=== PATIENT | male | born 1935 | race African-American/Black ===

== ENCOUNTER 2016-07-29 23:41 | Emergency (ER) | payer MEDICARE, OTHER ==
[2016-07-29 23:46] VITALS: TEMP 98.3
[2016-07-30] MEDS ORDERED: SODIUM CHLORIDE 0.9% 500 ML IV STA (00:01)
[2016-07-30] MEDS ORDERED: SODIUM CHLORIDE 0.9% 1,000 ML IV STA (00:01)
--- NOTE | 2016-07-30 00:04 | ED ---
Chest Pain HPI - General Chief Complaint: Chest Pain Stated Complaint: HTN/CHEST PAIN Time Seen by Provider: 07/29/16 23:55 Source: patient, family, RN notes reviewed Mode of arrival: ambulatory Limitations: no limitations - History of Present Illness Initial Comments: This is a 80-year-old male with a history of hypertension who came in today for evaluation of irregular blood pressure also some left-sided chest pain he states he noted his blood pressure was low yesterday he developed take his morning medications he did take his p.m. medications blood pressure was 104 systolic he states it was in the high 90s later on. He states he did take it prior to coming in tonight he also complains some left-sided chest pain and a slight headache he currently has no headache he states chest pain sometimes radiates to his arm is working out lately and it does increase with movements. He has no cough fevers chills sweats or other symptoms at this time. He also states he was not feeling quite like normal. MD Complaint: chest pain, other - Related Data Home Medications Medication Instructions Recorded Confirmed Aspirin 81 mg PO DAILY 12/12/14 07/29/16 Atenolol 25 mg PO BID 12/12/14 07/29/16 Finasteride [Proscar] 5 mg PO DAILY 12/12/14 07/29/16 Losartan Potassium [Cozaar] 100 mg PO DAILY 12/12/14 07/29/16 Omeprazole [PriLOSEC] 20 mg PO AC-BID 12/12/14 07/29/16 Tamsulosin HCl [Flomax] 0.4 mg PO BID 12/12/14 07/29/16 Travoprost [Travatan Z 0.004%] 1 drop LEFT EYE HS 12/12/14 07/29/16 amLODIPine [Norvasc] 5 mg PO DAILY 12/12/14 07/29/16 hydrALAZINE HCL [Apresoline] 25 mg PO BID 12/12/14 07/29/16 Previous Rx's Medication Instructions Recorded Albuterol Inhaler [Ventolin Hfa 2 puff INHALATION Q4HR PRN #1 12/12/14 Inhaler] inhaler Benzonatate [Tessalon Perles] 200 mg PO TID PRN #30 capsule 12/12/14 Docusate [Colace] 100 mg PO BID 30 Days 04/24/15 predniSONE 20 mg PO BID #14 tab 10/21/15 Allergies Allergy/AdvReac Type Severity Reaction Status Date / Time doxycycline Allergy Unknown Verified 07/29/16 23:46 levofloxacin [From Levaquin] Allergy Unknown Verified 07/29/16 23:46 ibuprofen [From Motrin] AdvReac Nausea Verified 07/29/16 23:46 Review of Systems ROS Statement: Those systems with pertinent positive or pertinent negative responses have been documented in the HPI. ROS Other: All systems not noted in ROS Statement are negative. EKG Findings - EKG Results: EKG: interpreted by JOS, sinus rhythm (Sinus rhythm with a rate of 71. Interval 160 QRS duration 96 QT/QTC of 392/425. Criteria for LVH no acute ST-T wave changes.) Past Medical History Past Medical History: GERD/Reflux, Hypertension Additional Past Medical History / Comment(s): BPH History of Any Multi-Drug Resistant Organisms: None Reported Past Surgical History: Cholecystectomy Past Psychological History: No Psychological Hx Reported Smoking Status: Former smoker Past Alcohol Use History: None Reported Past Drug Use History: None Reported General Exam - General Exam Comments Initial Comments: This is a well-developed well-nourished alert oriented x3 male Limitations: no limitations General appearance: alert, in no apparent distress Head exam: Present: atraumatic, normocephalic, normal inspection Eye exam: Present: normal appearance, PERRL, EOMI. Absent: scleral icterus, conjunctival injection, periorbital swelling ENT exam: Present: normal exam, mucous membranes moist Neck exam: Present: normal inspection. Absent: tenderness, meningismus, lymphadenopathy Respiratory exam: Present: normal lung sounds bilaterally, chest wall tenderness (Producible tenderness palpation along the left costal chondral margin and left pectoralis muscles). Absent: respiratory distress, wheezes, rales, rhonchi, stridor Cardiovascular Exam: Present: regular rate, normal rhythm, normal heart sounds. Absent: systolic murmur, diastolic murmur, rubs, gallop, clicks GI/Abdominal exam: Present: soft, normal bowel sounds. Absent: distended, tenderness, guarding, rebound, rigid Extremities exam: Present: normal inspection, full ROM, normal capillary refill. Absent: tenderness, pedal edema, joint swelling, calf tenderness Back exam: Present: normal inspection Neurological exam: Present: alert, oriented X3, CN II-XII intact Psychiatric exam: Present: normal affect, normal mood Skin exam: Present: warm, dry, intact, normal color. Absent: rash Course Vital Signs 07/29/16 07/30/16 23:42 00:59 Temperature 98.3 F Pulse Rate 77 67 Respiratory 18 14 Rate Blood Pressure 211/95 180/89 O2 Sat by Pulse 98 98 Oximetry Chest Pain MDM - MDM I did reevaluate the patient initially much improved blood pressure is improved after IV hydration x-rays are negative he will be discharged home is a follow- up with his doctor in 2 days return when necessary Disposition Clinical Impression: Hypertension, Dehydration Disposition: HOME SELF-CARE Condition: Good Instructions: Hypertension (ED), Dehydration (ED)
[2016-07-30 00:30] LABS: Basophils % (A) 1 %; Eosinophils # (A) 0.2 k/uL (0-0.7); Eosinophils % (A) 3 %; HCT 41.6 % (39.0-53.0); HDW 2.27; HGB 13.5 gm/dL (13.0-17.5); Luc # (Auto) 0.14; Luc % (Auto) 2; Lymphocytes # (A) 1.5 k/uL (1.0-4.8); Lymphocytes % (A) 25 %; MCH 30.6 pg (25.0-35.0); MCHC 32.4 g/dL (31.0-37.0); MCV 94.2 fL (80.0-100.0); Mean Platelet Volume 7.5; Monocytes # (A) 0.6 k/uL (0-1.0); Monocytes % (A) 9 %; Neutrophils # (A) 3.6 k/uL (1.3-7.7); Neutrophils % (A) 61 %; RBC 4.41 m/uL (4.30-5.90); RDW 13.4 % (11.5-15.5); WBC (Perox) 5.89
[2016-07-30 00:40] LABS: Partial Thromboplastin Time 23.4 sec (22.0-30.0); Prothrombin Time 10.5 sec (9.0-12.0)
[2016-07-30 00:41] LABS: ALT 42 U/L (21-72); AST 29 U/L (17-59); Alkaline Phosphatase 60 U/L (38-126); Anion Gap 10 mmol/L; Blood Urea Nitrogen 18 mg/dL (9-20); Calcium 9.5 mg/dL (8.4-10.2); Carbon Dioxide 24 mmol/L (22-30); Chloride 107 mmol/L (98-107); Glucose 101 mg/dL (74-99); Non-African American GFR(MDRD) >60 (>60 ml/min/1.73 sqM); Sodium 141 mmol/L (137-145); Total Bilirubin 0.4 mg/dL (0.2-1.3); Total Protein 7.4 g/dL (6.3-8.2)
[2016-07-30 00:42] LABS: Potassium 4.4 mmol/L (3.5-5.1)
[2016-07-30 00:52] LABS: Creatine Kinase 110 U/L (55-170)
[2016-07-30 01:00] VITALS: BP 180/89; PULSE 67; RESP 14
[2016-07-30 01:05] LABS: Creatine Kinase MB 1.7 ng/mL (0.0-2.4); Troponin I <0.012 ng/mL (0.000-0.034)
--- NOTE | 2016-07-30 03:29 | XR ---
EXAMINATION TYPE: XR chest 2V DATE OF EXAM: 07/30/2016 12:50 AM COMPARISON: 12/28/2014 HISTORY: Chest pain TECHNIQUE: Frontal and lateral views of the chest are obtained. FINDINGS: Mild atelectasis is suggested in both lung bases. COPD changes are noted. There is no focal air space opacity, pleural effusion, or pneumothorax seen. The cardiac silhouette size is within normal limits. Mild degenerative changes in the thoracic spine with mild old compress ion deformities. IMPRESSION: 1. Mild atelectasis in both lung bases. 2. No focal pneumonia. 3. COPD changes.
== END 2016-07-30 01:46 | disposition home or self-care (01) ==
LOC: EC 23:41
DX: I10 Essential (primary) hypertension (principal); E86.0 Dehydration; K21.9 Gastro-esophageal reflux disease without esophagitis; N40.0 Benign prostatic hyperplasia without lower urinary tract symptoms; Z79.82 Long term (current) use of aspirin; Z79.899 Other long term (current) drug therapy; Z88.1 Allergy status to other antibiotic agents; Z88.8 Allergy status to other drugs, medicaments and biological substances; Z87.891 Personal history of nicotine dependence
CPT/HCPCS: 36415; 71020; 80053; 82550; 82553; 83735; 84484; 85025; 85610; 85730; 93005; 96360; 99285

== ENCOUNTER 2017-05-15 23:17 | Emergency (ER) | payer MEDICARE, OTHER ==
[2017-05-15 23:26] VITALS: TEMP 97.9
[2017-05-16] MEDS ORDERED: cloNIDine HCL 0.2 MG TAB PO STA (00:10)
--- NOTE | 2017-05-16 00:10 | ED ---
Extremity Problem HPI - General Chief complaint: Extremity Problem,Nontraumatic Stated complaint: leg swelling, hypertenstion Time Seen by Provider: 05/15/17 23:36 Source: patient Mode of arrival: ambulatory Limitations: no limitations - History of Present Illness Initial comments: This patient is a 81-year-old man who presents to be evaluated for bilateral ankle swelling. The patient states this been going on for number of months. 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 Patient does bring a piece paper that has some elevated liver pressure readings going back about a week, and ranging from the 160s to 200s. The patient is denying chest pain, dyspnea, cough. He is not having abdominal pain. He has not noted a change in urination or bowel movements. Patient states that he was told that he may need a prostate surgery, but states that he still is able to urinate. MD Complaint: extremity swelling -: week(s) Location: bilateral lower extremity Consistency: constant Improves with: nothing Worsens with: nothing Associated Symptoms: denies other symptoms - Related Data Home Medications Medication Instructions Recorded Confirmed Aspirin 81 mg PO DAILY 12/12/14 05/16/17 Atenolol 25 mg PO BID 12/12/14 05/16/17 Finasteride [Proscar] 5 mg PO DAILY 12/12/14 05/16/17 Losartan Potassium [Cozaar] 100 mg PO DAILY 12/12/14 05/16/17 Omeprazole [PriLOSEC] 40 mg PO DAILY 12/12/14 05/16/17 Tamsulosin HCl [Flomax] 0.4 mg PO BID 12/12/14 05/16/17 hydrALAZINE HCL [Apresoline] 50 mg PO TID 12/12/14 05/16/17 Latanoprost Ophth [Xalatan 0.005%] 1 drop LEFT EYE DAILY 05/16/17 05/16/17 Terbinafine [LamISIL] 250 mg PO DAILY 05/16/17 05/16/17 cloNIDine HCL [Catapres] 0.1 mg PO TID 05/16/17 05/16/17 Allergies Allergy/AdvReac Type Severity Reaction Status Date / Time doxycycline Allergy Unknown Verified 05/15/17 23:26 levofloxacin [From Levaquin] Allergy Unknown Verified 05/15/17 23:26 ibuprofen [From Motrin] AdvReac Nausea Verified 05/15/17 23:26 Review of Systems ROS Statement: Those systems with pertinent positive or pertinent negative responses have been documented in the HPI. ROS Other: All systems not noted in ROS Statement are negative. Constitutional: Denies: fever, chills Respiratory: Denies: cough, dyspnea Cardiovascular: Reports: edema. Denies: chest pain, palpitations, orthopnea, syncope Gastrointestinal: Denies: abdominal pain, nausea, vomiting Genitourinary: Reports: as per HPI. Denies: dysuria, hematuria Musculoskeletal: Denies: back pain Skin: Denies: rash Neurological: Denies: headache, weakness, numbness Past Medical History Past Medical History: GERD/Reflux, Hearing Disorder / Deafness, Hypertension Additional Past Medical History / Comment(s): BPH, bulged disk in neck. History of Any Multi-Drug Resistant Organisms: None Reported Past Surgical History: Cholecystectomy, Hernia Repair, Tonsillectomy Additional Past Surgical History / Comment(s): cyst from spine removed. Past Psychological History: No Psychological Hx Reported Smoking Status: Former smoker Past Alcohol Use History: None Reported Past Drug Use History: None Reported General Exam Limitations: no limitations General appearance: alert, in no apparent distress Head exam: Present: atraumatic, normocephalic Eye exam: Present: normal appearance. Absent: scleral icterus, conjunctival injection Respiratory exam: Present: normal lung sounds bilaterally. Absent: respiratory distress, wheezes, rales, rhonchi, stridor Cardiovascular Exam: Present: regular rate, normal rhythm, normal heart sounds. Absent: systolic murmur, diastolic murmur, rubs, gallop GI/Abdominal exam: Present: soft. Absent: distended, tenderness, guarding, rebound Extremities exam: Present: normal inspection, normal capillary refill, pedal edema (Patient has bilateral pitting edema to the mid tibia). Absent: calf tenderness Back exam: Present: normal inspection. Absent: CVA tenderness (R), CVA tenderness (L) Neurological exam: Present: alert Skin exam: Present: warm, dry, intact, normal color Course Vital Signs 05/15/17 05/16/17 23:20 02:06 Temperature 97.9 F Pulse Rate 84 62 Respiratory 18 16 Rate Blood Pressure 237/107 168/88 O2 Sat by Pulse 99 100 Oximetry Medical Decision Making - Medical Decision Making This patient is 81-year-old man presenting with bilateral leg edema. He is found to have 950 mL on the bladder scan after voiding. For this reason the patient will have catheter placed and follow-up with both nephrology and urology. He has previously been told that he should have a prostate procedure for what sounds like a previous history of retention. The patient is offered admission but states that he has family coming into town from [place] for the holiday tomorrow and that he will follow-up in status this is possible. I did stress the importance of following up, and the patient understands, given that his had kidney failure. - Lab Data Result diagrams: 05/15/17 23:50 05/15/17 23:50 Lab Results 05/15/17 05/15/17 05/15/17 Range/Units 23:50 23:50 23:50 WBC 6.5 (3.8-10.6) k/uL RBC 4.03 L (4.30-5.90) m/uL Hgb 12.3 L (13.0-17.5) gm/dL Hct 38.1 L (39.0-53.0) % MCV 94.7 (80.0-100.0) fL MCH 30.5 (25.0-35.0) pg MCHC 32.2 (31.0-37.0) g/dL RDW 14.3 (11.5-15.5) % Plt Count 228 (150-450) k/uL Neutrophils % 62 % Lymphocytes % 22 % Monocytes % 10 % Eosinophils % 3 % Basophils % 0 % Neutrophils # 4.0 (1.3-7.7) k/uL Lymphocytes # 1.4 (1.0-4.8) k/uL Monocytes # 0.7 (0-1.0) k/uL Eosinophils # 0.2 (0-0.7) k/uL Basophils # 0.0 (0-0.2) k/uL Sodium 141 (137-145) mmol/L Potassium 4.1 (3.5-5.1) mmol/L Chloride 107 (98-107) mmol/L Carbon Dioxide 24 (22-30) mmol/L Anion Gap 10 mmol/L BUN 25 H (9-20) mg/dL Creatinine 1.70 H (0.66-1.25) mg/dL Est GFR (MDRD) Af Amer 47 (>60 ml/min/1.73 sqM) Est GFR (MDRD) Non-Af 39 (>60 ml/min/1.73 sqM) Glucose 119 H (74-99) mg/dL Calcium 9.3 (8.4-10.2) mg/dL Magnesium 1.9 (1.6-2.3) mg/dL Total Bilirubin 0.4 (0.2-1.3) mg/dL AST 32 (17-59) U/L ALT 39 (21-72) U/L Alkaline Phosphatase 67 (38-126) U/L Troponin I (0.000-0.034) ng/mL NT-Pro-B Natriuret Pep 1140 pg/mL Total Protein 7.0 (6.3-8.2) g/dL Albumin 4.0 (3.5-5.0) g/dL 05/15/17 Range/Units 23:50 WBC (3.8-10.6) k/uL RBC (4.30-5.90) m/uL Hgb (13.0-17.5) gm/dL Hct (39.0-53.0) % MCV (80.0-100.0) fL MCH (25.0-35.0) pg MCHC (31.0-37.0) g/dL RDW (11.5-15.5) % Plt Count (150-450) k/uL Neutrophils % % Lymphocytes % % Monocytes % % Eosinophils % % Basophils % % Neutrophils # (1.3-7.7) k/uL Lymphocytes # (1.0-4.8) k/uL Monocytes # (0-1.0) k/uL Eosinophils # (0-0.7) k/uL Basophils # (0-0.2) k/uL Sodium (137-145) mmol/L Potassium (3.5-5.1) mmol/L Chloride (98-107) mmol/L Carbon Dioxide (22-30) mmol/L Anion Gap mmol/L BUN (9-20) mg/dL Creatinine (0.66-1.25) mg/dL Est GFR (MDRD) Af Amer (>60 ml/min/1.73 sqM) Est GFR (MDRD) Non-Af (>60 ml/min/1.73 sqM) Glucose (74-99) mg/dL Calcium (8.4-10.2) mg/dL Magnesium (1.6-2.3) mg/dL Total Bilirubin (0.2-1.3) mg/dL AST (17-59) U/L ALT (21-72) U/L Alkaline Phosphatase (38-126) U/L Troponin I <0.012 (0.000-0.034) ng/mL NT-Pro-B Natriuret Pep pg/mL Total Protein (6.3-8.2) g/dL Albumin (3.5-5.0) g/dL - EKG Data -: EKG Interpreted by Nh EKG shows normal: sinus rhythm (Rate approximately 82 bpm), axis (Normal), intervals (Normal), ST-T waves (Normal) Interpretation: LVH, other (Possible left atrial enlargement) Disposition Clinical Impression: Edema, Acute renal failure, Urinary retention Disposition: HOME SELF-CARE Condition: Fair Instructions: Urinary Retention in Men (ED), Leg Edema (ED) Referrals: Antonieta Rey MD [Primary Care Provider] - 1-2 days Racheal Caballero MD [STAFF PHYSICIAN] - 1-2 days Deepak Diaz MD [STAFF PHYSICIAN] - 1-2 days
[2017-05-16 00:40] LABS: Basophils % (A) 0 %; Eosinophils # (A) 0.2 k/uL (0-0.7); Eosinophils % (A) 3 %; HCT 38.1 % (39.0-53.0); HGB 12.3 gm/dL (13.0-17.5); Lymphocytes # (A) 1.4 k/uL (1.0-4.8); Lymphocytes % (A) 22 %; MCH 30.5 pg (25.0-35.0); MCHC 32.2 g/dL (31.0-37.0); MCV 94.7 fL (80.0-100.0); Mean Platelet Volume 7.6; Monocytes # (A) 0.7 k/uL (0-1.0); Monocytes % (A) 10 %; Neutrophils % (A) 62 %; Platelet Count 228 k/uL (150-450); RBC 4.03 m/uL (4.30-5.90); RDW 14.3 % (11.5-15.5); WBC 6.5 k/uL (3.8-10.6)
[2017-05-16 00:46] LABS: Calcium 9.3 mg/dL (8.4-10.2); Magnesium 1.9 mg/dL (1.6-2.3); Potassium 4.1 mmol/L (3.5-5.1); Total Bilirubin 0.4 mg/dL (0.2-1.3)
--- NOTE | 2017-05-16 01:44 | XR ---
EXAMINATION TYPE: XR chest 2V DATE OF EXAM: 05/16/2017 COMPARISON: NONE HISTORY: Chest pain TECHNIQUE: Frontal and lateral views of the chest are obtained. FINDINGS: Heart and mediastinum are normal. Lungs are clear. Diaphragm is normal. There are chest le ads. Bony thorax is intact. IMPRESSION: No active cardiopulmonary disease. No change.
[2017-05-16 02:07] VITALS: RESP 16
[2017-05-16 03:17] VITALS: BP 206/95; PULSE 84
== END 2017-05-16 03:17 | disposition home or self-care (01) ==
LOC: EC 23:17
DX: R60.0 Localized edema (principal); N17.9 Acute kidney failure, unspecified; R33.9 Retention of urine, unspecified; K21.9 Gastro-esophageal reflux disease without esophagitis; I10 Essential (primary) hypertension; N40.0 Benign prostatic hyperplasia without lower urinary tract symptoms; H91.90 Unspecified hearing loss, unspecified ear; Z87.891 Personal history of nicotine dependence; Z79.82 Long term (current) use of aspirin; Z79.899 Other long term (current) drug therapy; Z88.1 Allergy status to other antibiotic agents; Z88.6 Allergy status to analgesic agent
CPT/HCPCS: 36415; 51702; 51798; 71020; 80053; 83735; 83880; 84484; 85025; 93005; 99284

== ENCOUNTER 2017-05-16 08:15 | Emergency (ER) | payer MEDICARE, OTHER ==
--- NOTE | 2017-05-16 08:48 | ED ---
Male Urogenital HPI - General Chief complaint: Urogenital Stated complaint: R leg bleed Time Seen by Provider: 05/16/17 08:35 Source: patient, family, RN notes reviewed Mode of arrival: wheelchair Limitations: no limitations - History of Present Illness Initial comments: This is a 81-year-old male who was seen in this emergency department and discharge earlier this morning who initially came in because of urinary OBSTRUCTION WHO DID ONLY GET A CATHETER WHO IS HAD A LOT OF BLOOD IN HIS CATHETER THE PAST SEVERAL TIMES IT WAS EMPTIED. HE ORIGINALLY HAD A LOT OF URINE BEFORE THE OLD CATHETER WAS PLACED. Patient denies any fevers chills abdominal pain. He does have a Lee with a leg bag on at this time. - Related Data Home Medications Medication Instructions Recorded Confirmed Aspirin 81 mg PO DAILY 12/12/14 05/16/17 Atenolol 25 mg PO BID 12/12/14 05/16/17 Finasteride [Proscar] 5 mg PO DAILY 12/12/14 05/16/17 Losartan Potassium [Cozaar] 100 mg PO DAILY 12/12/14 05/16/17 Omeprazole [PriLOSEC] 40 mg PO DAILY 12/12/14 05/16/17 Tamsulosin HCl [Flomax] 0.4 mg PO BID 12/12/14 05/16/17 hydrALAZINE HCL [Apresoline] 50 mg PO TID 12/12/14 05/16/17 HYDROcodone/APAP 7.5-325MG [[place] 1 tab PO BID PRN 05/16/17 05/16/17 7.5-325] Latanoprost Ophth [Xalatan 0.005%] 1 drop LEFT EYE HS 05/16/17 05/16/17 Terbinafine [LamISIL] 250 mg PO DAILY 05/16/17 05/16/17 cloNIDine HCL [Catapres] 0.1 mg PO TID 05/16/17 05/16/17 Allergies Allergy/AdvReac Type Severity Reaction Status Date / Time doxycycline Allergy Unknown Verified 05/16/17 08:40 levofloxacin [From Levaquin] Allergy Unknown Verified 05/16/17 08:40 ibuprofen [From Motrin] AdvReac Nausea Verified 05/16/17 08:40 Review of Systems ROS Statement: Those systems with pertinent positive or pertinent negative responses have been documented in the HPI. ROS Other: All systems not noted in ROS Statement are negative. Past Medical History Past Medical History: GERD/Reflux, Hearing Disorder / Deafness, Hypertension Additional Past Medical History / Comment(s): BPH, bulged disk in neck. History of Any Multi-Drug Resistant Organisms: None Reported Past Surgical History: Cholecystectomy, Hernia Repair, Tonsillectomy Additional Past Surgical History / Comment(s): cyst from spine removed. Past Psychological History: No Psychological Hx Reported Smoking Status: Former smoker Past Alcohol Use History: None Reported Past Drug Use History: None Reported General Exam - General Exam Comments Initial Comments: This is a well-developed well-nourished awake alert oriented 3 male Limitations: no limitations General appearance: alert, in no apparent distress Head exam: Present: atraumatic, normocephalic, normal inspection Eye exam: Present: normal appearance, PERRL, EOMI. Absent: scleral icterus, conjunctival injection, periorbital swelling ENT exam: Present: normal exam, mucous membranes moist Neck exam: Present: normal inspection. Absent: tenderness, meningismus, lymphadenopathy Respiratory exam: Present: normal lung sounds bilaterally. Absent: respiratory distress, wheezes, rales, rhonchi, stridor Cardiovascular Exam: Present: regular rate, normal rhythm, normal heart sounds. Absent: systolic murmur, diastolic murmur, rubs, gallop, clicks GI/Abdominal exam: Present: soft, normal bowel sounds. Absent: distended, tenderness, guarding, rebound, rigid Rectal exam: Present: deferred exam: Present: other (Fully catheter is in place there is evidence of hematuria with small clots noted. No leak is seen). Absent: testicular tenderness, scrotal swelling Extremities exam: Present: normal inspection, full ROM, normal capillary refill. Absent: tenderness, pedal edema, joint swelling, calf tenderness Back exam: Absent: tenderness Neurological exam: Present: alert, oriented X3, CN II-XII intact Psychiatric exam: Present: normal affect, normal mood Skin exam: Present: warm, dry, intact, normal color. Absent: rash Course Vital Signs 05/16/17 05/16/17 05/16/17 08:23 10:00 10:40 Temperature 98.0 F Pulse Rate 73 71 70 Respiratory 16 18 18 Rate Blood Pressure 227/100 225/105 231/107 O2 Sat by Pulse 95 98 98 Oximetry Medical Decision Making - Medical Decision Making Reevaluation patient reveals his blood pressure is trending down he did not take his medications this morning he was given them in the emergency department. He is asymptomatic at this time we had a long discussion regarding the hematuria that should clear up over time over the next one or 2 days. He is encouraged to continue to take fluids. He was warned that if clots forming could plug up the catheter again. He is aware this. He will follow-up with his doctor. - Lab Data Lab Results 05/16/17 Range/Units 09:52 Urine Color Red Urine Appearance Bloody (Clear) Urine RBC >182 H (0-5) /hpf Urine WBC 7 H (0-5) /hpf Disposition Clinical Impression: Lee catheter problem, Hematuria, Hypertension Disposition: HOME SELF-CARE Condition: Good Instructions: Lee Catheter Placement and Care (ED), Hematuria (ED), Hypertension (ED) Additional Instructions: Increase oral fluid consumption Referrals: Antonieta Rey MD [Primary Care Provider] - 1-2 days
[2017-05-16 10:00] VITALS: RESP 18
[2017-05-16 10:15] LABS: Particle Count 5100; RBC,Urine >182 /hpf (0-5); WBC,Urine 7 /hpf (0-5)
[2017-05-16 10:17] LABS: Appearance,Urine Bloody (Clear)
[2017-05-16 10:18] LABS: UA Billing (MACRO vs. MICRO) MICRO
[2017-05-16] MEDS ORDERED: hydrALAZINE HCL 50 MG TAB PO STA (10:19)
[2017-05-16] MEDS ORDERED: cloNIDine HCL 0.1 MG TAB PO STA (10:20)
[2017-05-16] MEDS ORDERED: LOSARTAN 50 MG TAB PO STA (10:20)
[2017-05-16] MEDS ORDERED: ATENOLOL 25 MG TAB PO STA (10:20)
[2017-05-16 12:09] VITALS: BP 164/92; PULSE 78; TEMP 98.4
== END 2017-05-16 12:06 | disposition home or self-care (01) ==
LOC: EC 08:15
DX: T83.098A Other mechanical complication of other urinary catheter, initial encounter (principal); R31.9 Hematuria, unspecified; I10 Essential (primary) hypertension; K21.9 Gastro-esophageal reflux disease without esophagitis; H91.90 Unspecified hearing loss, unspecified ear; N40.0 Benign prostatic hyperplasia without lower urinary tract symptoms; Z87.891 Personal history of nicotine dependence; Z79.82 Long term (current) use of aspirin; Z79.899 Other long term (current) drug therapy; Z88.1 Allergy status to other antibiotic agents; Z88.6 Allergy status to analgesic agent; Z90.49 Acquired absence of other specified parts of digestive tract
CPT/HCPCS: 51798; 81001; 99284

== ENCOUNTER 2017-05-25 22:00 | Emergency (ER) | payer MEDICARE, OTHER ==
[2017-05-25] MEDS ORDERED: RX INFO: IV CONTRAST WAS GIVEN 1 EACH MISC MISCELLANE PRN (22:58)
--- NOTE | 2017-05-25 23:01 | ED ---
General Adult HPI - General Chief complaint: Urogenital Stated complaint: groin pain Time Seen by Provider: 05/25/17 22:11 Source: patient, family, RN notes reviewed Mode of arrival: ambulatory Limitations: no limitations - History of Present Illness Initial comments: Patient is a pleasant 81-year-old male presenting to the emergency department with groin pain. Patient was in the hospital a week or so ago and had catheter placed. Patient has had significant urinary output and decrease in leg swelling since that time. Patient has had some clots out from the catheter. Patient does have discomfort in the groin/inguinal region. No testicle pain. No testicle swelling. Patient did have some swelling of the penis however this has resolved with care by the son. - Related Data Home Medications Medication Instructions Recorded Confirmed Aspirin 81 mg PO DAILY 12/12/14 05/25/17 Atenolol 25 mg PO BID 12/12/14 05/25/17 Finasteride [Proscar] 5 mg PO DAILY 12/12/14 05/25/17 Losartan Potassium [Cozaar] 100 mg PO DAILY 12/12/14 05/25/17 Omeprazole [PriLOSEC] 40 mg PO DAILY 12/12/14 05/25/17 Tamsulosin HCl [Flomax] 0.4 mg PO BID 12/12/14 05/25/17 hydrALAZINE HCL [Apresoline] 50 mg PO BID 12/12/14 05/25/17 HYDROcodone/APAP 7.5-325MG [[place] 1 tab PO BID PRN 05/16/17 05/25/17 7.5-325] Latanoprost Ophth [Xalatan 0.005%] 1 drop LEFT EYE HS 05/16/17 05/25/17 Terbinafine [LamISIL] 250 mg PO DAILY 05/16/17 05/25/17 cloNIDine HCL [Catapres] 0.1 mg PO BID 05/16/17 05/25/17 Allergies Allergy/AdvReac Type Severity Reaction Status Date / Time doxycycline Allergy Unknown Verified 05/25/17 22:35 levofloxacin [From Levaquin] Allergy Unknown Verified 05/25/17 22:35 ibuprofen [From Motrin] AdvReac Nausea Verified 05/25/17 22:35 Review of Systems ROS Statement: Those systems with pertinent positive or pertinent negative responses have been documented in the HPI. ROS Other: All systems not noted in ROS Statement are negative. Constitutional: Denies: fever Eyes: Denies: eye pain ENT: Denies: ear pain Respiratory: Denies: cough Cardiovascular: Denies: chest pain Endocrine: Denies: fatigue Gastrointestinal: Denies: abdominal pain Genitourinary: Reports: hematuria Musculoskeletal: Denies: back pain Skin: Denies: rash Neurological: Denies: weakness Past Medical History Past Medical History: GERD/Reflux, Hearing Disorder / Deafness, Hypertension Additional Past Medical History / Comment(s): BPH, bulged disk in neck. History of Any Multi-Drug Resistant Organisms: None Reported Past Surgical History: Cholecystectomy, Hernia Repair, Tonsillectomy Additional Past Surgical History / Comment(s): cyst from spine removed. Past Psychological History: No Psychological Hx Reported Smoking Status: Former smoker Past Alcohol Use History: None Reported Past Drug Use History: None Reported General Exam Limitations: no limitations General appearance: alert, in no apparent distress Head exam: Present: atraumatic Eye exam: Present: normal appearance, PERRL ENT exam: Present: normal oropharynx Neck exam: Present: normal inspection Respiratory exam: Present: normal lung sounds bilaterally Cardiovascular Exam: Present: regular rate, normal rhythm GI/Abdominal exam: Present: soft. Absent: distended, tenderness, guarding, rebound, rigid exam: Present: other (No erythema or swelling. Minimal tenderness bilateral inguinal region). Absent: testicular tenderness, urethral discharge, scrotal swelling Extremities exam: Present: normal inspection Neurological exam: Present: alert Psychiatric exam: Present: normal affect, normal mood Skin exam: Present: normal color Course Vital Signs 05/25/17 05/25/17 05/26/17 22:04 23:54 00:46 Temperature 97.9 F 98.7 F Pulse Rate 70 65 71 Respiratory 20 16 16 Rate Blood Pressure 201/96 213/109 176/84 O2 Sat by Pulse 99 99 98 Oximetry Medical Decision Making - Medical Decision Making Patient reevaluated and resting comfortably in bed. Patient and family are updated on results and need for follow-up. Specifically updated on concerning regions in the bladder and kidney and that the kidney doctor will need to follow -up with this. Patient has seen Dr. Diaz the past and does have an appointment. - Lab Data Result diagrams: 05/25/17 23:27 12/01/17 23:27 Lab Results 05/25/17 05/25/17 05/25/17 Range/Units 23:27 23:27 23:27 WBC 7.0 (3.8-10.6) k/uL RBC 4.15 L (4.30-5.90) m/uL Hgb 12.5 L (13.0-17.5) gm/dL Hct 38.3 L (39.0-53.0) % MCV 92.2 (80.0-100.0) fL MCH 30.1 (25.0-35.0) pg MCHC 32.7 (31.0-37.0) g/dL RDW 13.1 (11.5-15.5) % Plt Count 256 (150-450) k/uL Neutrophils % 62 % Lymphocytes % 22 % Monocytes % 9 % Eosinophils % 2 % Basophils % 0 % Neutrophils # 4.4 (1.3-7.7) k/uL Lymphocytes # 1.6 (1.0-4.8) k/uL Monocytes # 0.6 (0-1.0) k/uL Eosinophils # 0.2 (0-0.7) k/uL Basophils # 0.0 (0-0.2) k/uL PT 10.4 (9.0-12.0) sec INR 1.0 (<1.2) APTT 24.0 (22.0-30.0) sec Sodium 136 L (137-145) mmol/L Potassium 4.1 (3.5-5.1) mmol/L Chloride 101 (98-107) mmol/L Carbon Dioxide 25 (22-30) mmol/L Anion Gap 10 mmol/L BUN 17 (9-20) mg/dL Creatinine 1.20 (0.66-1.25) mg/dL Est GFR (MDRD) Af Amer >60 (>60 ml/min/1.73 sqM) Est GFR (MDRD) Non-Af 58 (>60 ml/min/1.73 sqM) Glucose 96 (74-99) mg/dL Calcium 9.4 (8.4-10.2) mg/dL Total Bilirubin 0.3 (0.2-1.3) mg/dL AST 30 (17-59) U/L ALT 36 (21-72) U/L Alkaline Phosphatase 70 (38-126) U/L Total Protein 7.0 (6.3-8.2) g/dL Albumin 3.9 (3.5-5.0) g/dL Amylase 92 (30-110) U/L Lipase 129 (23-300) U/L Urine Color Urine Appearance (Clear) Urine pH (5.0-8.0) Ur Specific [place] (1.001-1.035) Urine Protein (Negative) Urine Glucose (UA) (Negative) Urine Ketones (Negative) Urine Blood (Negative) Urine Nitrite (Negative) Urine Bilirubin (Negative) Urine Urobilinogen (<2.0) mg/dL Ur Leukocyte Esterase (Negative) Urine RBC (0-5) /hpf Urine WBC (0-5) /hpf Urine Bacteria (None) /hpf Urine Mucus (None) /hpf 05/25/17 Range/Units 23:27 WBC (3.8-10.6) k/uL RBC (4.30-5.90) m/uL Hgb (13.0-17.5) gm/dL Hct (39.0-53.0) % MCV (80.0-100.0) fL MCH (25.0-35.0) pg MCHC (31.0-37.0) g/dL RDW (11.5-15.5) % Plt Count (150-450) k/uL Neutrophils % % Lymphocytes % % Monocytes % % Eosinophils % % Basophils % % Neutrophils # (1.3-7.7) k/uL Lymphocytes # (1.0-4.8) k/uL Monocytes # (0-1.0) k/uL Eosinophils # (0-0.7) k/uL Basophils # (0-0.2) k/uL PT (9.0-12.0) sec INR (<1.2) APTT (22.0-30.0) sec Sodium (137-145) mmol/L Potassium (3.5-5.1) mmol/L Chloride (98-107) mmol/L Carbon Dioxide (22-30) mmol/L Anion Gap mmol/L BUN (9-20) mg/dL Creatinine (0.66-1.25) mg/dL Est GFR (MDRD) Af Amer (>60 ml/min/1.73 sqM) Est GFR (MDRD) Non-Af (>60 ml/min/1.73 sqM) Glucose (74-99) mg/dL Calcium (8.4-10.2) mg/dL Total Bilirubin (0.2-1.3) mg/dL AST (17-59) U/L ALT (21-72) U/L Alkaline Phosphatase (38-126) U/L Total Protein (6.3-8.2) g/dL Albumin (3.5-5.0) g/dL Amylase (30-110) U/L Lipase (23-300) U/L Urine Color Light Yellow Urine Appearance Clear (Clear) Urine pH 5.0 (5.0-8.0) Ur Specific [place] 1.002 (1.001-1.035) Urine Protein Negative (Negative) Urine Glucose (UA) Negative (Negative) Urine Ketones Negative (Negative) Urine Blood Moderate H (Negative) Urine Nitrite Negative (Negative) Urine Bilirubin Negative (Negative) Urine Urobilinogen <2.0 (<2.0) mg/dL Ur Leukocyte Esterase Negative (Negative) Urine RBC 2 (0-5) /hpf Urine WBC <1 (0-5) /hpf Urine Bacteria Rare H (None) /hpf Urine Mucus Rare H (None) /hpf - Radiology Data Radiology results: report reviewed (Computed tomography scan of the abdomen pelvis shows thickened urinary bladder. Tumor cannot be excluded. Prostate calcifications. Decreased enhancement of the right kidney suspicious for tumor. ) Disposition Clinical Impression: Inguinal pain Disposition: HOME SELF-CARE Condition: Stable Instructions: Abdominal Pain (ED) Additional Instructions: Please follow-up with urologist this week. Return for increased pain, fever, urinary problems, worsening symptoms or other concerns. Please do ensure that urologist reviews computed tomography scan. You will likely need further evaluation. Referrals: Antonieta Rey MD [Primary Care Provider] - 1-2 days Deepak Diaz MD [STAFF PHYSICIAN] - 1-2 days Time of Disposition: 00:55
[2017-05-25] MEDS ORDERED: ATENOLOL 12.5 MG TAB PO STA (23:42)
[2017-05-25] MEDS ORDERED: hydrALAZINE HCL 50 MG TAB PO STA (23:42)
[2017-05-25] MEDS ORDERED: cloNIDine HCL 0.1 MG TAB PO STA (23:42)
[2017-05-25 23:52] LABS: Appearance,Urine Clear (Clear); Bacteria,Urine Rare /hpf; Basophils % (A) 0 %; Bilirubin,Urine Negative (Negative); CH 30.7; CHCM 33.4; Eosinophils # (A) 0.2 k/uL (0-0.7); Eosinophils % (A) 2 %; Glucose,Urine (UA) Negative (Negative); HCT 38.3 % (39.0-53.0); HDW 2.13; HGB 12.5 gm/dL (13.0-17.5); Ketones,Urine Negative (Negative); Leukocyte Esterase,Urine Negative (Negative); Luc # (Auto) 0.27; Luc % (Auto) 4; Lymphocytes # (A) 1.6 k/uL (1.0-4.8); Lymphocytes % (A) 22 %; MCH 30.1 pg (25.0-35.0); MCHC 32.7 g/dL (31.0-37.0); MCV 92.2 fL (80.0-100.0); Mean Platelet Volume 6.6; Monocytes # (A) 0.6 k/uL (0-1.0); Monocytes % (A) 9 %; Mucus,Urine Rare /hpf; Neutrophils # (A) 4.4 k/uL (1.3-7.7); Neutrophils % (A) 62 %; Nitrite,Urine Negative (Negative); Particle Count 588; Protein,Urine Negative (Negative); RBC 4.15 m/uL (4.30-5.90); RBC,Urine 2 /hpf (0-5); RDW 13.1 % (11.5-15.5); Specific Gravity,Urine 1.002 (1.001-1.035); UA Billing (MACRO vs. MICRO) MICRO; Urobilinogen,Urine <2.0 mg/dL (<2.0); WBC (Perox) 6.87; WBC,Urine <1 /hpf (0-5)
[2017-05-25 23:55] VITALS: RESP 16
[2017-05-25 23:58] LABS: Prothrombin Time 10.4 sec (9.0-12.0)
[2017-05-25 23:59] LABS: ALT 36 U/L (21-72); AST 30 U/L (17-59); Alkaline Phosphatase 70 U/L (38-126); Amylase 92 U/L (30-110); Anion Gap 10 mmol/L; Blood Urea Nitrogen 17 mg/dL (9-20); Calcium 9.4 mg/dL (8.4-10.2); Carbon Dioxide 25 mmol/L (22-30); Chloride 101 mmol/L (98-107); Glucose 96 mg/dL (74-99); Non-African American GFR(MDRD) 58 (>60 ml/min/1.73 sqM); Potassium 4.1 mmol/L (3.5-5.1); Sodium 136 mmol/L (137-145); Total Bilirubin 0.3 mg/dL (0.2-1.3)
--- NOTE | 2017-05-26 00:37 | CT ---
EXAMINATION TYPE: CT abdomen pelvis w con DATE OF EXAM: 05/26/2017 COMPARISON: NONE HISTORY: groin pain for 2 days, history of indwelling catheter placed on 05/16/[address] DLP: 973.40 mGycm Automated exposure control for dose reduction was used. TECHNIQUE: Helical acquisition of images was performed from the lung bases through the pelvis. CONTRAST: Performed without Oral Contrast and with IV Contrast, patient injected with 100 mL of Omnipaque 300. FINDINGS: Lung bases are clear of consolidation. There is no pleural effusion. Heart appears enlarged. Liver shows no focal defect. There are clips from cholecystectomy. Bile ducts are not dilated. Spleen and pancreas appear normal. There is no adrenal mass. There are left renal cortical cysts that measure up to 2 cm. There is a 3 c m area of decreased cortical enhancement on the anterior right kidney. There is overall fairly normal renal function. There is no hydronephrosis. There is no retroperitoneal adenopathy. There are numerous diverticula in the colon. There is a catheter in urinary bladder. Bladder wall is thickened. There are spondylotic changes in the lumbar spine. I see no bony destructive process. Appe ndix appears normal. There is no sign of a bowel obstruction. Urinary bladder measures up to 1.5 cm i n thickness. IMPRESSION: THICK-WALLED URINARY BLADDER. BLADDER TUMOR CANNOT BE EXCLUDED. PROSTATIC CALCIFICATIONS. 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 LEFT RENAL CORTICAL CYSTS. DECREASED ENHANCEMENT OF THE RIGHT KIDNEY ON THE ANTERIOR CORTEX IS SUSPIC IOUS FOR A TUMOR. THE CONTOUR IS SOMEWHAT BULGING. FOLLOW-UP IS RECOMMENDED. I THINK THAT ISCHEMIA OR PYELONEPHRITIS IS LESS LIKELY.
[2017-05-26 00:47] VITALS: BP 176/84; PULSE 71; TEMP 98.7
== END 2017-05-26 01:08 | disposition home or self-care (01) ==
LOC: EC 22:00
DX: R10.30 Lower abdominal pain, unspecified (principal); M79.89 Other specified soft tissue disorders; K21.9 Gastro-esophageal reflux disease without esophagitis; I10 Essential (primary) hypertension; Z90.49 Acquired absence of other specified parts of digestive tract; Z87.891 Personal history of nicotine dependence; Z79.82 Long term (current) use of aspirin; Z79.899 Other long term (current) drug therapy; Z88.1 Allergy status to other antibiotic agents; Z88.6 Allergy status to analgesic agent
CPT/HCPCS: 36415; 80053; 82150; 83690; 85025; 85610; 85730; 81001; 87086; 74177; 99284; Q9967

== ENCOUNTER 2017-08-28 20:01 | Inpatient (IN) | payer MEDICARE, OTHER ==
[2017-08-28 21:12] LABS: Basophils % (A) 1 %; Eosinophils # (A) 0.2 k/uL (0-0.7); Eosinophils % (A) 3 %; HCT 37.7 % (39.0-53.0); HGB 12.8 gm/dL (13.0-17.5); Lymphocytes # (A) 1.5 k/uL (1.0-4.8); Lymphocytes % (A) 23 %; MCH 30.7 pg (25.0-35.0); MCHC 33.8 g/dL (31.0-37.0); MCV 90.7 fL (80.0-100.0); Monocytes # (A) 0.6 k/uL (0-1.0); Monocytes % (A) 9 %; Neutrophils % (A) 63 %; Platelet Count 281 k/uL (150-450); RBC 4.16 m/uL (4.30-5.90); RDW 12.6 % (11.5-15.5); WBC 6.5 k/uL (3.8-10.6)
[2017-08-28 21:23] LABS: Albumin 4.1 g/dL (3.5-5.0); Calcium 9.7 mg/dL (8.4-10.2); Potassium 4.9 mmol/L (3.5-5.1); Total Bilirubin 0.2 mg/dL (0.2-1.3); Total Protein 7.1 g/dL (6.3-8.2)
[2017-08-28 21:24] LABS: Partial Thromboplastin Time 22.3 sec (22.0-30.0); Prothrombin Time 9.7 sec (9.0-12.0)
[2017-08-28 21:29] LABS: Creatine Kinase 81 U/L (55-170)
--- NOTE | 2017-08-28 21:29 | ED ---
GI Bleed HPI - General Chief complaint: GI Bleed Stated complaint: rectal bleeding-cancer pt Time Seen by Provider: 08/28/17 21:08 Source: patient Mode of arrival: ambulatory Limitations: no limitations - History of Present Illness Initial comments: This patient is a 81-year-old man who presents to be evaluated for rectal bleeding. The patient states he has previously had diverticula he has also had hemorrhoids which have both caused bleeding in the past. The patient states he did have some bright red blood after bowel movement yesterday in the morning and he attributed this to hemorrhoids. He states that then today he had a total of 4 bowel movements with a small amount of blood. He was seeing some bright red blood on the outside of stool this morning, then he had a small amount of dark blood, then with the last 2 bowel movements she had he noted small amount of bright red blood. He has not had any abdominal or anal pain. He denies symptoms of anemia, including no dyspnea, diaphoresis, orthostasis, lightheadedness, palpitations, chest pain or syncope. MD complaint: blood streaked stool Onset/Timin -: days(s) Radiation: none Quality: painless Improves with: none Worsens with: none Context: history of GI bleed, hemorrhoids Associated Symptoms: denies other symptoms Treatments Prior to Arrival: none - Related Data Home Medications Medication Instructions Recorded Confirmed Aspirin 81 mg PO DAILY 12/12/14 08/28/17 Losartan Potassium [Cozaar] 100 mg PO DAILY 12/12/14 08/28/17 Omeprazole [PriLOSEC] 40 mg PO DAILY 12/12/14 08/28/17 hydrALAZINE HCL [Apresoline] 50 mg PO TID 12/12/14 08/28/17 Latanoprost Ophth [Xalatan 0.005%] 1 drop LEFT EYE HS 05/16/17 08/28/17 Terbinafine [LamISIL] 250 mg PO DAILY 05/16/17 08/28/17 cloNIDine HCL [Catapres] 0.1 mg PO TID 05/16/17 08/28/17 Benzonatate [Tessalon Perles] 100 mg PO TID PRN 08/28/17 08/28/17 Metoprolol Tartrate [Lopressor] 25 mg PO BID 08/28/17 08/28/17 Allergies Allergy/AdvReac Type Severity Reaction Status Date / Time doxycycline Allergy Unknown Verified 08/28/17 21:28 levofloxacin [From Levaquin] Allergy Unknown Verified 08/28/17 21:28 ibuprofen [From Motrin] AdvReac Nausea Verified 08/28/17 21:28 Review of Systems ROS Statement: Those systems with pertinent positive or pertinent negative responses have been documented in the HPI. ROS Other: All systems not noted in ROS Statement are negative. Constitutional: Denies: fever, chills, weakness Respiratory: Denies: cough, dyspnea Cardiovascular: Denies: chest pain, palpitations, dyspnea on exertion, edema, syncope Gastrointestinal: Reports: as per HPI, hematochezia. Denies: abdominal pain, vomiting, diarrhea, constipation, melena Genitourinary: Denies: dysuria, hematuria Musculoskeletal: Denies: back pain Neurological: Denies: headache, weakness, numbness Hematological/Lymphatic: Denies: easy bleeding Past Medical History Past Medical History: Cancer, GERD/Reflux, Hearing Disorder / Deafness, Hypertension Additional Past Medical History / Comment(s): BPH, bulged disk in neck. History of Any Multi-Drug Resistant Organisms: None Reported Past Surgical History: Cholecystectomy, Hernia Repair, Prostate Surgery, Tonsillectomy Additional Past Surgical History / Comment(s): cyst from spine removed. Past Psychological History: No Psychological Hx Reported Smoking Status: Former smoker Past Alcohol Use History: None Reported Past Drug Use History: None Reported - Past Family History Mother History Unknown: Yes Additional Family Medical History / Comment(s): Pt was adopted Father History Unknown: Yes Additional Family Medical History / Comment(s): Pt was adopted. He does know that father was an alcoholic. General Exam Limitations: no limitations General appearance: alert, in no apparent distress Head exam: Present: atraumatic, normocephalic Eye exam: Present: normal appearance. Absent: scleral icterus, conjunctival injection ENT exam: Present: normal oropharynx Neck exam: Present: normal inspection Respiratory exam: Present: normal lung sounds bilaterally. Absent: respiratory distress, wheezes, rales, rhonchi, stridor Cardiovascular Exam: Present: regular rate, normal rhythm, normal heart sounds GI/Abdominal exam: Present: soft. Absent: distended, tenderness, guarding, rebound Rectal exam: Present: prostate enlargement (Markedly enlarged and nodular prostate), other (There is dark blood present on the exam). Absent: hemorrhoids Extremities exam: Present: normal inspection, normal capillary refill. Absent: pedal edema, calf tenderness Back exam: Present: normal inspection. Absent: CVA tenderness (R), CVA tenderness (L) Neurological exam: Present: alert, normal gait Skin exam: Present: warm, dry, intact, normal color. Absent: rash Course Vital Signs 08/28/17 08/28/17 08/28/17 20:31 21:15 23:59 Temperature 97.8 F Pulse Rate 86 86 71 Pulse Rate [ Pulse Oximetery ] Respiratory 18 18 20 Rate Blood Pressure 186/88 207/95 168/80 Blood Pressure [Left Arm] O2 Sat by Pulse 99 96 97 Oximetry 08/29/17 08/29/17 08/29/17 01:35 02:55 04:04 Temperature Pulse Rate 71 70 71 Pulse Rate [ Pulse Oximetery ] Respiratory 20 20 18 Rate Blood Pressure 154/71 173/84 184/86 Blood Pressure [Left Arm] O2 Sat by Pulse 96 96 98 Oximetry 08/29/17 08/29/17 08/29/17 05:05 06:08 07:04 Temperature Pulse Rate 65 67 66 Pulse Rate [ Pulse Oximetery ] Respiratory 18 20 20 Rate Blood Pressure 170/85 189/84 190/86 Blood Pressure [Left Arm] O2 Sat by Pulse 97 97 98 Oximetry 08/29/17 08/29/17 08:00 11:44 Temperature 97.3 F L 97.9 F Pulse Rate Pulse Rate [ 67 69 Pulse Oximetery ] Respiratory 18 18 Rate Blood Pressure Blood Pressure 187/95 142/80 [Left Arm] O2 Sat by Pulse 97 99 Oximetry Medical Decision Making - Medical Decision Making This patient is 81-year-old man with history of previous diverticular bleeding, presenting with a number of bowel movements with some dark red blood. Clinically the patient has good vital signs, the initial hemoglobin nearly was in the normal range. Case discussed with admitting physician and patient admitted for serial blood counts. - Lab Data Result diagrams: 08/29/17 13:58 08/28/17 20:53 Lab Results 08/28/17 08/28/17 08/28/17 Range/Units 20:53 20:53 20:53 WBC 6.5 (3.8-10.6) k/uL RBC 4.16 L (4.30-5.90) m/uL Hgb 12.8 L (13.0-17.5) gm/dL Hct 37.7 L (39.0-53.0) % MCV 90.7 (80.0-100.0) fL MCH 30.7 (25.0-35.0) pg MCHC 33.8 (31.0-37.0) g/dL RDW 12.6 (11.5-15.5) % Plt Count 281 (150-450) k/uL Neutrophils % 63 % Lymphocytes % 23 % Monocytes % 9 % Eosinophils % 3 % Basophils % 1 % Neutrophils # 4.0 (1.3-7.7) k/uL Lymphocytes # 1.5 (1.0-4.8) k/uL Monocytes # 0.6 (0-1.0) k/uL Eosinophils # 0.2 (0-0.7) k/uL Basophils # 0.0 (0-0.2) k/uL PT (9.0-12.0) sec INR (<1.2) APTT (22.0-30.0) sec Sodium 139 (137-145) mmol/L Potassium 4.9 (3.5-5.1) mmol/L Chloride 100 (98-107) mmol/L Carbon Dioxide 30 (22-30) mmol/L Anion Gap 9 mmol/L BUN 22 H (9-20) mg/dL Creatinine 1.08 (0.66-1.25) mg/dL Est GFR (CKD-EPI)AfAm 75 (>60 ml/min/1.73 sqM) Est GFR (CKD-EPI)NonAf 65 (>60 ml/min/1.73 sqM) Glucose 94 (74-99) mg/dL Calcium 9.7 (8.4-10.2) mg/dL Total Bilirubin 0.2 (0.2-1.3) mg/dL AST 27 (17-59) U/L ALT 41 (21-72) U/L Alkaline Phosphatase 71 (38-126) U/L Total Creatine Kinase 81 (55-170) U/L CK-MB (CK-2) 1.3 (0.0-2.4) ng/mL CK-MB (CK-2) Rel Index 1.6 Troponin I <0.012 (0.000-0.034) ng/mL Total Protein 7.1 (6.3-8.2) g/dL Albumin 4.1 (3.5-5.0) g/dL Lipase 133 (23-300) U/L Stool Occult Blood (Negative) Blood Type Blood Type Recheck Antibody Screen Spec Expiration Date 08/28/17 08/28/17 08/28/17 Range/Units 20:53 22:00 22:05 WBC (3.8-10.6) k/uL RBC (4.30-5.90) m/uL Hgb (13.0-17.5) gm/dL Hct (39.0-53.0) % MCV (80.0-100.0) fL MCH (25.0-35.0) pg MCHC (31.0-37.0) g/dL RDW (11.5-15.5) % Plt Count (150-450) k/uL Neutrophils % % Lymphocytes % % Monocytes % % Eosinophils % % Basophils % % Neutrophils # (1.3-7.7) k/uL Lymphocytes # (1.0-4.8) k/uL Monocytes # (0-1.0) k/uL Eosinophils # (0-0.7) k/uL Basophils # (0-0.2) k/uL PT 9.7 (9.0-12.0) sec INR 1.0 (<1.2) APTT 22.3 (22.0-30.0) sec Sodium (137-145) mmol/L Potassium (3.5-5.1) mmol/L Chloride (98-107) mmol/L Carbon Dioxide (22-30) mmol/L Anion Gap mmol/L BUN (9-20) mg/dL Creatinine (0.66-1.25) mg/dL Est GFR (CKD-EPI)AfAm (>60 ml/min/1.73 sqM) Est GFR (CKD-EPI)NonAf (>60 ml/min/1.73 sqM) Glucose (74-99) mg/dL Calcium (8.4-10.2) mg/dL Total Bilirubin (0.2-1.3) mg/dL AST (17-59) U/L ALT (21-72) U/L Alkaline Phosphatase (38-126) U/L Total Creatine Kinase (55-170) U/L CK-MB (CK-2) (0.0-2.4) ng/mL CK-MB (CK-2) Rel Index Troponin I (0.000-0.034) ng/mL Total Protein (6.3-8.2) g/dL Albumin (3.5-5.0) g/dL Lipase (23-300) U/L Stool Occult Blood Positive (Negative) Blood Type B Positive Blood Type Recheck No Antibody Screen NEGATIVE Spec Expiration Date 08/31/2017 - 2299 - EKG Data -: EKG Interpreted by Me EKG shows normal: sinus rhythm, axis (Normal), intervals (Normal), QRS complexes (Possible LVH), ST-T waves (Normal) Rate: normal (Rate 72 bpm) Interpretation: LVH Critical Care Time Critical Care Time: Yes (30 minutes) Disposition Clinical Impression: Lower gastrointestinal hemorrhage Disposition: ADMITTED IP TO THIS [facility] Condition: Fair
[2017-08-28 21:42] LABS: Creatine Kinase MB 1.3 ng/mL (0.0-2.4); Troponin I <0.012 ng/mL (0.000-0.034)
[2017-08-28] MEDS ORDERED: ONDANSETRON 4 MG/2 ML VIAL IVP PRN (22:45)
[2017-08-28] MEDS ORDERED: NALOXONE 0.4 MG/ML 1 ML VIAL IV PRN (22:45)
[2017-08-29 02:58] LABS: Basophils % (A) 0 %; Eosinophils # (A) 0.2 k/uL (0-0.7); Eosinophils % (A) 3 %; HGB 10.9 gm/dL (13.0-17.5); Lymphocytes # (A) 1.5 k/uL (1.0-4.8); Lymphocytes % (A) 26 %; MCH 30.6 pg (25.0-35.0); MCV 92.6 fL (80.0-100.0); Mean Platelet Volume 6.9; Monocytes # (A) 0.5 k/uL (0-1.0); Monocytes % (A) 9 %; Neutrophils # (A) 3.3 k/uL (1.3-7.7); Neutrophils % (A) 59 %; Platelet Count 204 k/uL (150-450); RBC 3.56 m/uL (4.30-5.90); RDW 12.9 % (11.5-15.5); WBC 5.7 k/uL (3.8-10.6)
[2017-08-29] MEDS: hydrALAZINE HCL 50 MG TAB PO SCH ×3 (08:04→20:57)
[2017-08-29] MEDS: LOSARTAN 50 MG TAB PO SCH (08:04)
[2017-08-29] MEDS: METOPROLOL TARTRATE 25 MG TAB PO SCH ×2 (08:04→20:58)
[2017-08-29] MEDS: PANTOPRAZOLE 40 MG/10 ML VIAL IV SCH (08:04)
[2017-08-29] MEDS: cloNIDine HCL 0.1 MG TAB PO SCH ×3 (08:04→20:58)
[2017-08-29 08:09] LABS: Basophils % (A) 1 %; Eosinophils # (A) 0.2 k/uL (0-0.7); Eosinophils % (A) 3 %; HCT 35.4 % (39.0-53.0); Lymphocytes # (A) 1.7 k/uL (1.0-4.8); Lymphocytes % (A) 26 %; MCHC 33.8 g/dL (31.0-37.0); MCV 91.7 fL (80.0-100.0); Mean Platelet Volume 6.7; Monocytes # (A) 0.5 k/uL (0-1.0); Monocytes % (A) 9 %; Neutrophils # (A) 3.6 k/uL (1.3-7.7); Neutrophils % (A) 58 %; Platelet Count 235 k/uL (150-450); RBC 3.86 m/uL (4.30-5.90); RDW 12.6 % (11.5-15.5); WBC 6.2 k/uL (3.8-10.6)
[2017-08-29] MEDS: SODIUM CHLORIDE 0.9% 1,000 ML IV SCH ×2 (08:16→16:07)
[2017-08-29] MEDS ORDERED: NON-FORMULARY DRUG (Omeprazole [Prilosec] 40 MG) PO SCH (09:00)
--- NOTE | 2017-08-29 10:28 | P.HPIM ---
History of Present Illness H&P Date: 08/29/17 Chief Complaint: Rectal bleeding Gary Reynoso is a 81-year-old male well-known to practice who presented to [facility] emergency room with a chief complaint of rectal bleeding patient describes bright red blood from the rectum after having bowel movements on the day prior to presentation subsequently he had 4 more bowel movement that had blood mixed with the stools. Patient denies any abdominal pain, he has known history of diverticulosis and previous episodes of gastrointestinal bleeding, he also has known history of hemorrhoids with bleeding. He was evaluated in the emergency room and was admitted to telemetry floor for further evaluation and treatment gastroenterology consultation was requested. Past Medical History Past Medical History: Cancer, COPD, Eye Disorder, GERD/Reflux, GI Bleed, Hearing Disorder / Deafness, Hypertension, Myocardial Infarction ([place]), Syncope Additional Past Medical History / Comment(s): Currently being tx for prostate cancer with radiation, BPH, diverticular dx/hemorrhoids which have caused lower GI bleeds before, bilateral tinnitis, cervical bulging discs, back bulging discs , 2013 syncope thought to be vasovagal, arthritis bilateral shoulders, knees and in back, L eye glaucoma, AR sometime prioe to 2003 Last Myocardial Infarction Date:: unkn History of Any Multi-Drug Resistant Organisms: None Reported Past Surgical History: Cholecystectomy, Heart Catheterization, Hernia Repair, Prostate Surgery, Tonsillectomy Additional Past Surgical History / Comment(s): 05/2017 prostrate biopsy, R inguinal hernia repair, L knee arthroscopy, bilateral knee injections "chicken fat.", cyst from spine (tailbone) removed, bilateral cataract removal with lens implants. Past Anesthesia/Blood Transfusion Reactions: No Reported Reaction Additional Past Anesthesia/Blood Transfusion Reaction / Comment(s): Pt has received blood in past without reaction. Smoking Status: Former smoker - Past Family History Mother History Unknown: Yes Additional Family Medical History / Comment(s): Pt was adopted Father History Unknown: Yes Additional Family Medical History / Comment(s): Pt was adopted. He does know that father was an alcoholic. Medications and Allergies Home Medications Medication Instructions Recorded Confirmed Type Aspirin 81 mg PO DAILY 12/12/14 08/28/17 History Losartan Potassium [Cozaar] 100 mg PO DAILY 12/12/14 08/28/17 History Omeprazole [PriLOSEC] 40 mg PO DAILY 12/12/14 08/28/17 History hydrALAZINE HCL [Apresoline] 50 mg PO TID 12/12/14 08/28/17 History Latanoprost Ophth [Xalatan 0.005%] 1 drop LEFT EYE HS 05/16/17 08/28/17 History Terbinafine [LamISIL] 250 mg PO DAILY 05/16/17 08/28/17 History cloNIDine HCL [Catapres] 0.1 mg PO TID 05/16/17 08/28/17 History Benzonatate [Tessalon Perles] 100 mg PO TID PRN 08/28/17 08/28/17 History Metoprolol Tartrate [Lopressor] 25 mg PO BID 08/28/17 08/28/17 History Allergies Allergy/AdvReac Type Severity Reaction Status Date / Time doxycycline Allergy Unknown Verified 08/28/17 21:28 levofloxacin [From Levaquin] Allergy Unknown Verified 08/28/17 21:28 ibuprofen [From Motrin] AdvReac Nausea Verified 08/28/17 21:28 Physical Exam Vitals: Vital Signs Temp Pulse Resp BP Pulse Ox 08/29/17 07:04 66 20 190/86 98 08/29/17 06:08 67 20 189/84 97 08/29/17 05:05 65 18 170/85 97 08/29/17 04:04 71 18 184/86 98 08/29/17 02:55 70 20 173/84 96 08/29/17 01:35 71 20 154/71 96 08/28/17 23:59 71 20 168/80 97 08/28/17 21:15 86 18 207/95 96 08/28/17 20:31 97.8 F 86 18 186/88 99 Intake and Output 08/28/17 08/29/17 08/29/17 22:59 06:59 14:59 Other: Weight 86.183 kg In general patient is alert and oriented 3 in no apparent distress HEENT head normocephalic and atraumatic Neck is supple no JVD no goiter no lymphadenopathy Chest exam reveals a few scattered rhonchi bilaterally no wheezing Cardiac exam reveals regular heart sounds S1 and S2 no gallops no murmurs Abdomen is soft nontender no organomegaly with normal bowel sounds Extremity exam reveals no edema no cyanosis or clubbing Neurological examination reveals no gross focal deficits Results CBC & Chem 7: 08/29/17 07:45 08/28/17 20:53 Labs: Abnormal Lab Results - Last 24 Hours (Table) 08/28/17 08/28/17 08/29/17 Range/Units 20:53 20:53 02:26 RBC 4.16 L 3.56 L (4.30-5.90) m/uL Hgb 12.8 L 10.9 L (13.0-17.5) gm/dL Hct 37.7 L 33.0 L (39.0-53.0) % BUN 22 H (9-20) mg/dL 08/29/17 Range/Units 07:45 RBC 3.86 L (4.30-5.90) m/uL Hgb 12.0 L (13.0-17.5) gm/dL Hct 35.4 L (39.0-53.0) % BUN (9-20) mg/dL Thrombosis Risk Factor Assmnt - Choose All That Apply Any of the Below Risk Factors Present?: Yes Each Factor Represents 1 point: Abnormal pulmonary function (COPD) Other Risk Factors: Yes Each Risk Factor Represents 2 Points: Malignancy Each Risk Factor Represents 3 Points: Age 75 years or older Other congenital or acquired thrombophilia - If yes, enter type in comment: No Thrombosis Risk Factor Assessment Total Risk Factor Score: 6 Thrombosis Risk Factor Assessment Level: High Risk Assessment and Plan Plan: #1 rectal bleeding patient is admitted to telemetry floor he was started on IV Protonix gastroenterology consultation was requested serial CBC checks were ordered at this time hemoglobin is stable if there is any significant drop in hemoglobin Will proceed was red blood cell transfusion. #2 underlying history of diverticulosis there is no abdominal pain, and no leukocytosis to suggest acute diverticulitis #3 recent diagnosis of kidney cancer and prostate cancer patient was seen by Dr. Diaz he was supposed to start treatment, Will consult Dr. Diaz for follow- up #4 underlying history of hypertension #5 underlying history of hyperlipidemia At this time patient is clinically stable, awaiting evaluation by gastroenterology Will follow closely
--- NOTE | 2017-08-29 10:30 | P.CONS ---
History of Present Illness - Reason for Consult Consult date: 08/29/17 Rectal bleeding Requesting physician: Antonieta Rey - History of Present Illness 81-year-old gentleman recently diagnosed with prostate cancer, past medical history colonic diverticulosis, hemorrhoids, GERD, hypertension, [place], admitted with painless rectal bleeding. Bleeding has been present for 2-3 days mixed red/dark burgundy without fever chills weight loss hematemesis or melena. Home medications include Prilosec 40 mg daily and baby aspirin. He was scheduled for radiation treatment today has been receiving injections for his prostate cancer. Last colonoscopy to his memory is on several years. Admission hemoglobin 12.8 decreased to 10.9 presently 12. MCV 91. Platelet 235. INR 1.0. BUN 22. Creatinine 1.0. Stool occult blood positive. CT abdomen and pelvis May 2017 reported thick-walled urinary bladder. Bladder tumor cannot be excluded with prostatic calcifications. Severe diverticulosis of the descending and sigmoid colon. No bowel obstruction. Last bloody bowel movement yesterday evening. Review of Systems Constitutional: Denies fever, chills, sweats, weight gain, or loss. HEENT: Negative for migraines, blurred vision or loss, earaches, drainage, tinnitus, oral mucosal lesions, dysphagia, or odynophagia. Cardiac: MT. Hypertension. Negative for chest pain, arrhythmias, or palpitation. Respiratory: COPD. Negative for shortness of breath, hemoptysis, cough, or sputum production. Gastrointestinal: See HPI for pertinent findings. Genitourinary: Prostate cancer. Negative for hematuria, urgency, frequency, polyuria, dysuria, or penile discharge. Musculoskeletal: Negative for muscle aches, swelling, arthritis, and arthralgias. Neurologic: Negative for stroke or TIA. Endocrine: Negative for thyroid problems. Skin: Negative for rash or itching. Psychiatric: Negative history for depression and anxiety Past Medical History Past Medical History: Cancer, COPD, Eye Disorder, GERD/Reflux, GI Bleed, Hearing Disorder / Deafness, Hypertension, Myocardial Infarction (MT), Syncope Additional Past Medical History / Comment(s): Currently being tx for prostate cancer with radiation, BPH, diverticular dx/hemorrhoids which have caused lower GI bleeds before, bilateral tinnitis, cervical bulging discs, back bulging discs , 2013 syncope thought to be vasovagal, arthritis bilateral shoulders, knees and in back, L eye glaucoma, [place] sometime prioe to 2003 Last Myocardial Infarction Date:: unkn History of Any Multi-Drug Resistant Organisms: None Reported Past Surgical History: Cholecystectomy, Heart Catheterization, Hernia Repair, Prostate Surgery, Tonsillectomy Additional Past Surgical History / Comment(s): 05/2017 prostrate biopsy, R inguinal hernia repair, L knee arthroscopy, bilateral knee injections "chicken fat.", cyst from spine (tailbone) removed, bilateral cataract removal with lens implants. Past Anesthesia/Blood Transfusion Reactions: No Reported Reaction Additional Past Anesthesia/Blood Transfusion Reaction / Comm: Pt has received blood in past without reaction. Smoking Status: Former smoker - Past Family History Mother History Unknown: Yes Additional Family Medical History / Comment(s): Pt was adopted Father History Unknown: Yes Additional Family Medical History / Comment(s): Pt was adopted. He does know that father was an alcoholic. Medications and Allergies Home Medications Medication Instructions Recorded Confirmed Type Aspirin 81 mg PO DAILY 12/12/14 08/28/17 History Losartan Potassium [Cozaar] 100 mg PO DAILY 12/12/14 08/28/17 History Omeprazole [PriLOSEC] 40 mg PO DAILY 12/12/14 08/28/17 History hydrALAZINE HCL [Apresoline] 50 mg PO TID 12/12/14 08/28/17 History Latanoprost Ophth [Xalatan 0.005%] 1 drop LEFT EYE HS 05/16/17 08/28/17 History Terbinafine [LamISIL] 250 mg PO DAILY 05/16/17 08/28/17 History cloNIDine HCL [Catapres] 0.1 mg PO TID 05/16/17 08/28/17 History Benzonatate [Tessalon Perles] 100 mg PO TID PRN 08/28/17 08/28/17 History Metoprolol Tartrate [Lopressor] 25 mg PO BID 08/28/17 08/28/17 History Allergies Allergy/AdvReac Type Severity Reaction Status Date / Time doxycycline Allergy Unknown Verified 08/28/17 21:28 levofloxacin [From Levaquin] Allergy Unknown Verified 08/28/17 21:28 ibuprofen [From Motrin] AdvReac Nausea Verified 08/28/17 21:28 Physical Exam Vitals: Vital Signs Temp Pulse Resp BP Pulse Ox 08/29/17 07:04 66 20 190/86 98 08/29/17 06:08 67 20 189/84 97 08/29/17 05:05 65 18 170/85 97 08/29/17 04:04 71 18 184/86 98 08/29/17 02:55 70 20 173/84 96 08/29/17 01:35 71 20 154/71 96 08/28/17 23:59 71 20 168/80 97 08/28/17 21:15 86 18 207/95 96 08/28/17 20:31 97.8 F 86 18 186/88 99 Intake and Output 08/28/17 08/29/17 08/29/17 22:59 06:59 14:59 Other: Weight 86.183 kg General appearance: The patient is alert, oriented, in no acute distress. HET: Head is normocephalic and atraumatic. Pupils are equal and reactive. Oropharynx is clear without lesions. Neck: Supple without lymphadenopathy. Trachea midline. Heart: S1 S2. Regular rate and rhythm. Lungs: No crackles or wheezes are heard. Abdomen: Soft, nontender, nondistended with bowel sounds. No peritoneal signs. No palpable organomegaly or masses. Extremities: Normal skin color and turgor. No cyanosis, rash, ulceration, clubbing, or edema. Radial and pedal pulses are 2/4 bilaterally. Neurological: No focal deficits. Strength and sensation are grossly intact. Results CBC & Chem 7: 08/29/17 07:45 08/28/17 20:53 Labs: Abnormal Lab Results - Last 24 Hours (Table) 08/28/17 08/28/17 08/29/17 Range/Units 20:53 20:53 02:26 RBC 4.16 L 3.56 L (4.30-5.90) m/uL Hgb 12.8 L 10.9 L (13.0-17.5) gm/dL Hct 37.7 L 33.0 L (39.0-53.0) % BUN 22 H (9-20) mg/dL 08/29/17 Range/Units 07:45 RBC 3.86 L (4.30-5.90) m/uL Hgb 12.0 L (13.0-17.5) gm/dL Hct 35.4 L (39.0-53.0) % BUN (9-20) mg/dL Assessment and Plan Assessment: Impression: 1. Acute painless rectal bleeding 2-3 days with history of severe colonic diverticulosis suspect diverticular bleed however other pathology cannot be entirely excluded. 2. Component of acute blood loss anemia. 3. Recent diagnosis of prostate carcinoma maintained on injections with upcoming scheduled radiation. Plan: 1. Colonoscopy evaluation tomorrow. Clear liquid diet today. Nothing by mouth after midnight. CBC monitoring. The criminal justice instructor has discussed the risks, benefits and alternative therapies for the above-mentioned procedure and for both sedation/analgesia as well as necessary blood product administration, if indicated, as they pertain to this patient. The patient has indicated understanding and acceptance of the risks and procedures discussed. Thank you for this kind referral and the opportunity to participate in the care of your patient. This consultation was discussed with Dr. Cerda. The impression and plan of care have been directed as dictated.
[2017-08-29 14:13] LABS: Basophils % (A) 0 %; Eosinophils # (A) 0.2 k/uL (0-0.7); Eosinophils % (A) 3 %; HCT 33.5 % (39.0-53.0); Lymphocytes # (A) 1.1 k/uL (1.0-4.8); Lymphocytes % (A) 23 %; MCH 30.5 pg (25.0-35.0); MCHC 32.9 g/dL (31.0-37.0); MCV 92.8 fL (80.0-100.0); Mean Platelet Volume 7.4; Monocytes # (A) 0.4 k/uL (0-1.0); Monocytes % (A) 8 %; Neutrophils # (A) 3.2 k/uL (1.3-7.7); Neutrophils % (A) 64 %; Platelet Count 209 k/uL (150-450); RBC 3.61 m/uL (4.30-5.90); RDW 12.9 % (11.5-15.5)
[2017-08-29] MEDS ORDERED: PEG 3350-NA SULF,BICARB,CL/KCL 4,000 ML BOTTLE PO ONE (15:00)
[2017-08-29] MEDS: LATANOPROST 0.005% OPHTH DROPS 2.5 ML BTL LEFT EYE SCH (20:57)
[2017-08-29] MEDS ORDERED: ACETAMINOPHEN TAB 325 MG TAB PO PRN (21:31)
[2017-08-30] MEDS: SODIUM CHLORIDE 0.9% 1,000 ML IV SCH ×3 (01:24→18:58)
[2017-08-30 06:19] LABS: Basophils % (A) 1 %; Eosinophils # (A) 0.2 k/uL (0-0.7); Eosinophils % (A) 5 %; HCT 32.8 % (39.0-53.0); HGB 10.9 gm/dL (13.0-17.5); Lymphocytes # (A) 1.2 k/uL (1.0-4.8); Lymphocytes % (A) 27 %; MCH 30.5 pg (25.0-35.0); MCHC 33.3 g/dL (31.0-37.0); MCV 91.7 fL (80.0-100.0); Mean Platelet Volume 6.8; Monocytes # (A) 0.5 k/uL (0-1.0); Monocytes % (A) 10 %; Neutrophils # (A) 2.5 k/uL (1.3-7.7); Neutrophils % (A) 55 %; Platelet Count 214 k/uL (150-450); RBC 3.58 m/uL (4.30-5.90); RDW 12.8 % (11.5-15.5); WBC 4.6 k/uL (3.8-10.6)
[2017-08-30] MEDS: hydrALAZINE HCL 50 MG TAB PO SCH ×3 (08:05→22:05)
[2017-08-30] MEDS: LOSARTAN 50 MG TAB PO SCH (08:06)
[2017-08-30] MEDS: PANTOPRAZOLE 40 MG/10 ML VIAL IV SCH (08:06)
[2017-08-30] MEDS: METOPROLOL TARTRATE 25 MG TAB PO SCH ×2 (08:06→21:01)
[2017-08-30] MEDS: cloNIDine HCL 0.1 MG TAB PO SCH ×3 (08:06→22:05)
[2017-08-30] MEDS ORDERED: BENZONATATE 100 MG CAP PO PRN (12:48)
--- NOTE | 2017-08-30 12:53 | P.PN ---
Subjective Progress Note Date: 08/30/17 Gary Reynoso is a 81-year-old male well-known to practice who presented to [facility] emergency room with a chief complaint of rectal bleeding patient describes bright red blood from the rectum after having bowel movements on the day prior to presentation subsequently he had 4 more bowel movement that had blood mixed with the stools. Patient denies any abdominal pain, he has known history of diverticulosis and previous episodes of gastrointestinal bleeding, he also has known history of hemorrhoids with bleeding. He was evaluated in the emergency room and was admitted to telemetry floor for further evaluation and treatment gastroenterology consultation was requested. 08/30/2017 patient scheduled for colonoscopy today for rectal bleeding. Patient also complaining of cough reports that he is on a pill at home for his cough. Continue home med list we'll resume his Tessalon Perles. Also will order chest x-ray. Patient reports cough has been ongoing for about a week. Denies any shortness of breath. Denies any chest pain. Denies any nausea or vomiting. Denies any burning with urination. Objective - Vital Signs Vital signs: Vital Signs Temp 98.0 F 08/30/17 08:00 Pulse 75 08/30/17 08:00 Resp 16 08/30/17 08:00 BP 156/84 08/30/17 08:00 Pulse Ox 97 08/30/17 08:00 Intake & Output 08/29/17 08/30/17 08/30/17 18:59 06:59 18:59 Intake Total 240 960 0 Balance 240 960 0 Weight 82.2 kg Intake: Intake, IV Titration 960 Amount Sodium Chloride 0.9% 1, 960 000 ml @ 120 mls/hr IV . Q8H20M [facility] Rx#:[id number] Oral 240 0 Other: Voiding Method Urinal Toilet Urinal # Voids 1 # Bowel Movements 1 5 - Exam Head normocephalic Neck supple Lungs a few coarse breath sounds noted Heart regular rate and rhythm S1-S2, no rub or gallop Abdomen is soft nontender nondistended positive bowel sounds no hepatosplenomegaly Extremities no edema Neuro alert and orientated to 3 - Labs CBC & Chem 7: 08/30/17 05:51 08/28/17 20:53 Labs: Abnormal Lab Results - Last 24 Hours (Table) 08/29/17 08/30/17 Range/Units 13:58 05:51 RBC 3.61 L 3.58 L (4.30-5.90) m/uL Hgb 11.0 L 10.9 L (13.0-17.5) gm/dL Hct 33.5 L 32.8 L (39.0-53.0) % Assessment and Plan Assessment: #1 rectal bleeding: Patient scheduled for colonoscopy today. Hemoglobin stable at 10.9. Continue with Protonix. #2 underlying history of diverticulosis there is no abdominal pain, and no leukocytosis to suggest acute diverticulitis #3 recent diagnosis of kidney cancer and prostate cancer patient was seen by Dr. Diaz he was supposed to start treatment, Will consult Dr. Diaz for follow- up #4 underlying history of hypertension #5 underlying history of hyperlipidemia #6 cough: resume patient's Tessalon Perles. Symptoms have been ongoing for about a week. Check chest x-ray. Patient is afebrile. I performed an examination of the patient and discussed their management with the physician Naval Architect. I have reviewed the Physician Naval Architect's notes and agree with the documented findings and plan of care
--- NOTE | 2017-08-30 14:50 | XR ---
EXAMINATION TYPE: XR chest 2V DATE OF EXAM: 08/30/2017 COMPARISON: 05/16/2017 TECHNIQUE: PA and lateral views submitted. HISTORY: Cough FINDINGS: The lungs are clear and there is no pneumothorax, pleural effusion, or focal pneumonia. Hypertrophi c and degenerative change of the spine. IMPRESSION: 1. No acute process.
[2017-08-30] MEDS ORDERED: PROPOFOL 10 MG/ML 20 ML VIAL IV ONE (17:22)
[2017-08-30] MEDS ORDERED: LIDOCAINE 1% INJ 10MG/ML (20 ML MDV) ONE (17:22)
[2017-08-30] MEDS ORDERED: LACTATED RINGERS 1,000 ML IV ONE (17:23)
--- NOTE | 2017-08-30 18:09 | P.PCN ---
Date of Procedure: 08/30/17 Procedure(s) Performed: Procedure: Total colonoscopy. Preoperative diagnosis: Lower GI bleeding. Postoperative diagnosis: Diverticulosis with evidence of ongoing low-grade bleeding in the sigmoid with no definite site of origin. Preparation: GoLYTELY prep. Sedation: Was provided by anesthesia. Brief clinical history: The patient is a 81-year-old male recently diagnosed with prostate cancer awaiting radiation therapy initiation, past medical history colonic diverticulosis, hemorrhoids, GERD, hypertension, [place], was admitted with painless rectal bleeding. The bleeding has been present for 2-3 days mixed red/dark/ burgundy without fever, chills, weight loss, hematemesis or melena. Home medications include Prilosec 40 mg daily and baby aspirin. Last colonoscopy to his memory is on several years. Admission hemoglobin 12.8 decreased to 10.9. MCV 91. Platelet 235. INR 1.0. BUN 22. Creatinine 1.0. Stool occult blood positive. CT abdomen and pelvis May 2017 reported thick- walled urinary bladder. Bladder tumor cannot be excluded with prostatic calcifications. Severe diverticulosis of the descending and sigmoid colon. No bowel obstruction. Last bloody bowel movement 08/28 evening. Other details are summarized in the history and physical and dictated consultation and progress notes. Procedure: With the patient on his left lateral decubitus position and after informed consent and adequate sedation, the perianal area was inspected and it did not show any fissures or fistulas. There were no masses felt on digital rectal examination. The prostate felt enlarged and irregular. The Olympus CFQ 160L video colonoscope was then inserted in the rectum in the usual fashion and advanced to the cecum. There was significant diverticular disease on the left side and sigmoid with occasional diverticular orifices seen scattered on the right side with no evidence of acute diverticulitis or strictures. The fecal water was bloody in color in the sigmoid in the vicinity of diverticular orifices but there was no definite site of origin of bleeding. The mucosa appeared healthy. There were no angiodysplasias, polyps or cancer. I retroflexed the endoscope in the rectum before the endoscope was withdrawn. The patient tolerated the procedure well. Plan: The patient was reassured. Will continue liquid diet well we monitor the status of his bleeding and his hemoglobin. It may be advisable that his radiation treatment be delayed temporarily until his bleeding is stops completely. I will discuss with you and follow with you with interest.
[2017-08-30] MEDS ORDERED: FUROSEMIDE 10 MG/ML 2 ML VIAL IV ONE (18:24)
[2017-08-30] MEDS: LATANOPROST 0.005% OPHTH DROPS 2.5 ML BTL LEFT EYE SCH (21:00)
[2017-08-30 23:06] VITALS: RESP 18
[2017-08-31 06:03] LABS: Basophils % (A) 1 %; Eosinophils # (A) 0.3 k/uL (0-0.7); Eosinophils % (A) 7 %; HCT 32.3 % (39.0-53.0); HGB 10.4 gm/dL (13.0-17.5); Lymphocytes # (A) 1.2 k/uL (1.0-4.8); Lymphocytes % (A) 25 %; MCH 29.8 pg (25.0-35.0); MCHC 32.3 g/dL (31.0-37.0); MCV 92.3 fL (80.0-100.0); Mean Platelet Volume 6.8; Monocytes # (A) 0.5 k/uL (0-1.0); Monocytes % (A) 10 %; Neutrophils # (A) 2.6 k/uL (1.3-7.7); Neutrophils % (A) 56 %; Platelet Count 208 k/uL (150-450); RDW 12.8 % (11.5-15.5); WBC 4.6 k/uL (3.8-10.6)
[2017-08-31 06:23] LABS: Anion Gap 7 mmol/L; Blood Urea Nitrogen 11 mg/dL (9-20); Calcium 8.9 mg/dL (8.4-10.2); Carbon Dioxide 26 mmol/L (22-30); Chloride 107 mmol/L (98-107); Glucose 89 mg/dL (74-99); Potassium 3.5 mmol/L (3.5-5.1); Sodium 140 mmol/L (137-145)
[2017-08-31] MEDS: hydrALAZINE HCL 50 MG TAB PO SCH (07:56)
[2017-08-31] MEDS: cloNIDine HCL 0.1 MG TAB PO SCH (07:56)
[2017-08-31] MEDS: METOPROLOL TARTRATE 25 MG TAB PO SCH (07:57)
[2017-08-31] MEDS: PANTOPRAZOLE 40 MG/10 ML VIAL IV SCH (07:57)
[2017-08-31] MEDS: LOSARTAN 50 MG TAB PO SCH (07:57)
[2017-08-31 08:06] VITALS: TEMP 97.3
[2017-08-31] MEDS ORDERED: TERBINAFINE 250 MG TAB PO SCH (09:00)
--- NOTE | 2017-08-31 09:11 | P.PN ---
Subjective Progress Note Date: 08/31/17 Principal diagnosis: GI bleed Admitted with painless GI bleed with recent diagnosis of prostate cancer. Colonoscopy identified diverticulosis with evidence of ongoing low-grade bleeding in the sigmoid but no definite site of origin. Denies abdominal pain. No recurrent bleeding 2 days. Hemoglobin 10.4. Objective - Vital Signs Vital signs: Vital Signs Temp 97.3 F L 08/31/17 08:00 Pulse 66 08/31/17 08:00 Resp 18 08/31/17 08:00 BP 192/90 08/31/17 08:00 Pulse Ox 97 08/31/17 08:00 Intake & Output 08/30/17 08/31/17 08/31/17 18:59 06:59 18:59 Intake Total 300 10 Output Total 300 Balance 300 -290 Weight 75.8 kg Intake: IV 300 10 0.9 10 Oral 0 Output: Urine 300 Other: Voiding Method Toilet Toilet Urinal Urinal # Voids 1 1 # Bowel Movements 1 - Exam General appearance: The patient is alert, oriented, in no acute distress. HET: Head is normocephalic and atraumatic. Pupils are equal and reactive. Oropharynx is clear without lesions. Neck: Supple without lymphadenopathy. Trachea midline. Heart: S1 S2. Regular rate and rhythm. Lungs: No crackles or wheezes are heard. Abdomen: Soft, nontender, nondistended with bowel sounds. No peritoneal signs. No palpable organomegaly or masses. Extremities: Normal skin color and turgor. No cyanosis, rash, ulceration, clubbing, or edema. Radial and pedal pulses are 2/4 bilaterally. Neurological: No focal deficits. Strength and sensation are grossly intact. - Labs CBC & Chem 7: 08/31/17 05:33 08/31/17 05:33 Labs: Abnormal Lab Results - Last 24 Hours (Table) 08/31/17 Range/Units 05:33 RBC 3.50 L (4.30-5.90) m/uL Hgb 10.4 L (13.0-17.5) gm/dL Hct 32.3 L (39.0-53.0) % Assessment and Plan Assessment: Impression: 1. Acute painless rectal bleeding 2-3 days with history of severe colonic diverticulosis. Lower GI bleed secondary to colonic diverticulosis status post colonoscopy yesterday with evidence of active bleeding within the diverticula in the sigmoid without definite source presently asymptomatic with no recurrence of rectal bleeding. 2. Acute blood loss anemia. 3. Recent diagnosis of prostate carcinoma maintained on injections with upcoming scheduled radiation. Plan: 1. Dr. Cerda recommends holding off on radiation for now this was communicated to Dr. Rey's service Kimani NEGRON. Continue to hold aspirin. Will advance diet for lunch; low residue. Assessment and plan a care discussed with Dr. Donnelly
[2017-08-31 09:45] VITALS: BP 100/58; PULSE 70
--- NOTE | 2017-08-31 11:24 | P.DS ---
Providers Date of admission: 08/28/17 22:50 Expected date of discharge: 08/31/17 Attending physician: Antonieta Rey Consults: 08/28/17 22:46 Consult Physician Routine Consulting Provider: Derrell Creda Consult Reason/Comments: Rectal bleeding, suspect diverticulosis. Do you want consulting provider notified?: Yes Primary care physician: Antonieta [facility] Hospital Course: Discharge diagnosis #1 rectal bleeding: Likely secondary to a diverticular bleed. Patient is status post colonoscopy revealing diverticulosis with ongoing low-grade bleeding in the sigmoid. Patient has had no further blood present in his stools. Case discussed with GI service practitioner. Recommend to hold the aspirin and also to hold off on starting radiation treatment for his prostate cancer until bleeding completely stopped's. Hemoglobin at discharge is 10.4. We'll have him follow-up with Dr. Rey in 1 week to recheck CBC #2 underlying history of diverticulosis there is no abdominal pain, and no leukocytosis to suggest acute diverticulitis #3 recent diagnosis of kidney cancer and prostate cancer patient was seen by Dr. Diaz he was supposed to start treatment. Patient will need to hold off on radiation treatment at this point. #4 underlying history of hypertension #5 underlying history of hyperlipidemia #6 cough: resume patient's Tessalon Perles. Patient feeling better today. Chest x-ray was negative for any acute pulmonary process. Hospital course Gary Reynoso is a 81-year-old male well-known to practice who presented to [facility] emergency room with a chief complaint of rectal bleeding patient describes bright red blood from the rectum after having bowel movements on the day prior to presentation subsequently he had 4 more bowel movement that had blood mixed with the stools. Patient denies any abdominal pain, he has known history of diverticulosis and previous episodes of gastrointestinal bleeding, he also has known history of hemorrhoids with bleeding. He was evaluated in the emergency room and was admitted to telemetry floor for further evaluation and treatment gastroenterology consultation was requested. Patient is status post colonoscopy with evidence of diverticulosis and ongoing low-grade bleeding in the sigmoid. This felt likely his symptoms are related to a diverticular bleed. He's had no further blood in the stools. GI service has cleared him for discharge. We'll follow-up CBC in 1 week in the office. GI service is also recommending to discontinue the aspirin and hold off on starting radiation treatment until his bleeding completely stops. Patient is medically stable for discharge. I performed an examination of the patient and discussed their management with the physician Gill Tender. I have reviewed the Physician Gill Tender's notes and agree with the documented findings and plan of care Patient Condition at Discharge: Stable Plan - Discharge Summary Discharge Rx Participant: No New Discharge Prescriptions: Continue Omeprazole [PriLOSEC] 40 mg PO DAILY Losartan Potassium [Cozaar] 100 mg PO DAILY hydrALAZINE HCL [Apresoline] 50 mg PO TID Terbinafine [LamISIL] 250 mg PO DAILY cloNIDine HCL [Catapres] 0.1 mg PO TID Latanoprost Ophth [Xalatan 0.005%] 1 drop LEFT EYE HS Benzonatate [Tessalon Perles] 100 mg PO TID PRN PRN Reason: Cough Metoprolol Tartrate [Lopressor] 25 mg PO BID Discontinued Aspirin 81 mg PO DAILY Discharge Medication List Losartan Potassium [Cozaar] 100 mg PO DAILY 12/12/14 [History] Omeprazole [PriLOSEC] 40 mg PO DAILY 12/12/14 [History] hydrALAZINE HCL [Apresoline] 50 mg PO TID 12/12/14 [History] Latanoprost Ophth [Xalatan 0.005%] 1 drop LEFT EYE HS 05/16/17 [History] Terbinafine [LamISIL] 250 mg PO DAILY 05/16/17 [History] cloNIDine HCL [Catapres] 0.1 mg PO TID 05/16/17 [History] Benzonatate [Tessalon Perles] 100 mg PO TID PRN 08/28/17 [History] Metoprolol Tartrate [Lopressor] 25 mg PO BID 08/28/17 [History] Follow up Appointment(s)/Referral(s): Antonieta Rey MD [Primary Care Provider] - 09/07/17 10:45 am (sunday) Patient Instructions/Handouts: Colonoscopy (DC) Activity/Diet/Wound Care/Special Instructions: Diet : low fiber Activity: as tolerated Check CBC in [address] Rey's office No Aspirin or NSAIDS Discharge Disposition: HOME SELF-CARE
== END 2017-08-31 13:15 | disposition home or self-care (01) | DRG 378 ==
LOC: EC 20:01 → 6SEL 22:50
PROVIDERS: ADMIT Internal Medicine; ATTEND Internal Medicine
PROC: 0DJD8ZZ Inspection of Lower Intestinal Tract, Via Natural or Artificial Opening Endoscopic (ICD-10-PCS; principal; 2017-08-30 16:15)
DX: K57.31 Diverticulosis of large intestine without perforation or abscess with bleeding (principal); D62 Acute posthemorrhagic anemia; J44.9 Chronic obstructive pulmonary disease, unspecified; C61 Malignant neoplasm of prostate; E78.5 Hyperlipidemia, unspecified; D49.4 Neoplasm of unspecified behavior of bladder; N40.0 Benign prostatic hyperplasia without lower urinary tract symptoms; K21.9 Gastro-esophageal reflux disease without esophagitis; H91.90 Unspecified hearing loss, unspecified ear; I25.2 Old myocardial infarction; I10 Essential (primary) hypertension; H93.13 Tinnitus, bilateral; M19.012 Primary osteoarthritis, left shoulder; M19.011 Primary osteoarthritis, right shoulder; M17.0 Bilateral primary osteoarthritis of knee; M47.9 Spondylosis, unspecified; H40.9 Unspecified glaucoma; Z79.82 Long term (current) use of aspirin; Z79.899 Other long term (current) drug therapy; Z87.891 Personal history of nicotine dependence; Z90.49 Acquired absence of other specified parts of digestive tract; Z85.528 Personal history of other malignant neoplasm of kidney; Z92.3 Personal history of irradiation; Z96.1 Presence of intraocular lens; Z98.41 Cataract extraction status, right eye; Z98.42 Cataract extraction status, left eye; Z88.1 Allergy status to other antibiotic agents; Z88.8 Allergy status to other drugs, medicaments and biological substances
CPT/HCPCS: 36415; 45378; 71046; 80048; 80053; 82272; 82550; 82553; 83690; 84484; 85025; 85610; 85730; 86850; 86900; 86901; 93005; 96374; 99291

== ENCOUNTER 2021-07-24 15:35 | Emergency (ER) | payer MEDICARE, OTHER ==
[2021-07-24 15:48] VITALS: RESP 18
[2021-07-24] MEDS ORDERED: ACETAMINOPHEN TAB 500 MG TAB PO STA (15:57)
[2021-07-24] MEDS ORDERED: SODIUM CHLORIDE 0.9% 1,000 ML IV STA (15:57)
--- NOTE | 2021-07-24 16:07 | ED ---
Fall HPI - General Chief Complaint: Fall Stated Complaint: SYNCOPE Time Seen by Provider: 07/24/21 15:42 Source: patient, EMS Mode of arrival: EMS Limitations: no limitations - History of Present Illness Initial Comments: 85-year-old male presents emergency from via EMS after syncopal episode. Patient was urinating started feeling lightheaded and dizzy and passed out. Patient states he bumped his head on the wall but has no complaints of headache no neck pain no current dizziness. Patient states she just feels little generalized week which she has not last few days. Patient found to have a fever he denies any significant symptoms always had a cough which family states is chronic no dysuria no hematuria no diarrhea constipation no focal weakness no blurred vision - Related Data Home Medications Medication Instructions Recorded Confirmed Losartan Potassium [Cozaar] 100 mg PO DAILY 12/12/14 07/24/21 Omeprazole [PriLOSEC] 20 mg PO BID 12/12/14 07/24/21 Metoprolol Tartrate [Lopressor] 25 mg PO BID 08/28/17 07/24/21 Cholecalciferol [Vitamin D3 (25 50 mcg PO DAILY 07/24/21 07/24/21 Mcg = 1000 Iu)] HYDROcodone/APAP 7.5-325MG [[place] 1 tab PO Q12H PRN 07/24/21 07/24/21 7.5-325] amLODIPine [Norvasc] 5 mg PO DAILY 07/24/21 07/24/21 Allergies Allergy/AdvReac Type Severity Reaction Status Date / Time doxycycline Allergy Unknown Verified 07/24/21 16:48 levofloxacin [From Levaquin] Allergy Unknown Verified 07/24/21 16:48 ibuprofen [From Motrin] AdvReac Nausea Verified 07/24/21 16:48 Review of Systems ROS Statement: Those systems with pertinent positive or pertinent negative responses have been documented in the HPI. ROS Other: All systems not noted in ROS Statement are negative. Past Medical History Past Medical History: Cancer, GERD/Reflux, Hearing Disorder / Deafness, Hypertension Additional Past Medical History / Comment(s): BPH, bulged disk in neck. Last Myocardial Infarction Date:: unkn History of Any Multi-Drug Resistant Organisms: None Reported Past Surgical History: Cholecystectomy, Hernia Repair, Prostate Surgery, Ton sillectomy Additional Past Surgical History / Comment(s): cyst from spine removed. Past Anesthesia/Blood Transfusion Reactions: No Reported Reaction Additional Past Anesthesia/Blood Transfusion Reaction / Comment(s): Pt has r eceived blood in past without reaction. Past Psychological History: No Psychological Hx Reported Smoking Status: Former smoker Past Alcohol Use History: None Reported Past Drug Use History: None Reported - Past Family History Mother History Unknown: Yes Additional Family Medical History / Comment(s): Pt was adopted Father History Unknown: Yes Additional Family Medical History / Comment(s): Pt was adopted. He does know that father was an alcoholic. General Exam Limitations: no limitations General appearance: alert, in no apparent distress Head exam: Present: atraumatic, normocephalic, normal inspection Eye exam: Present: normal appearance, PERRL, EOMI. Absent: scleral icterus, conjunctival injection, periorbital swelling ENT exam: Present: normal exam, normal oropharynx, mucous membranes moist Neck exam: Present: normal inspection, full ROM. Absent: tenderness, meningismus, lymphadenopathy Respiratory exam: Present: normal lung sounds bilaterally. Absent: respiratory distress, wheezes, rales, rhonchi, stridor Cardiovascular Exam: Present: regular rate, normal rhythm, normal heart sounds. Absent: systolic murmur, diastolic murmur, rubs, gallop, clicks Neurological exam: Present: alert, oriented X3, CN II-XII intact, reflexes normal. Absent: motor sensory deficit Skin exam: Present: warm, dry, intact, normal color. Absent: rash Course Vital Signs 07/24/21 07/24/21 07/24/21 15:39 16:35 17:25 Temperature 101.3 F H 99.8 F H Pulse Rate 93 84 76 Respiratory 18 18 18 Rate Blood Pressure 156/80 166/88 159/86 O2 Sat by Pulse 96 98 97 Oximetry Medical Decision Making - Medical Decision Making 85-year-old presented for generalized weakness, possible syncopal episode, fever. Patient's found to have: 19. Patient does not reveal any acute hypoxia. Patient is able to ambulate in the emergency department though he states he feels slightly weak but able to. Patient feels comfortable with discharge home patient was athome.Wediscussedreturnparameters. - Lab Data Result diagrams: 07/24/21 15:59 07/24/21 15:59 Lab Results 07/24/21 07/24/2107/24/22 Range/Units 15:59 15:59 15:59 WBC 5.1 (3.8-10.6) k/uL RBC 4.11 L (4.30-5.90) m/uL Hgb 13.0 (13.0-17.5) gm/dL Hct 39.9 (39.0-53.0) % MCV 97.0 (80.0-100.0) fL MCH 31.7 (25.0-35.0) pg MCHC 32.7 (31.0-37.0) g/dL RDW 13.5 (11.5-15.5) % Plt Count 174 (150-450) k/uL MPV 7.1 Neutrophils % 69 % Lymphocytes % 11 % Monocytes % 16 % Eosinophils % 1 % Basophils % 1 % Neutrophils # 3.5 (1.3-7.7) k/uL Lymphocytes # 0.5 L (1.0-4.8) k/uL Monocytes # 0.8 (0-1.0) k/uL Eosinophils # 0.0 (0-0.7) k/uL Basophils # 0.0 (0-0.2) k/uL Manual Slide Review Performed RBC Morphology Normal PT 11.1 (9.0-12.0) sec INR 1.0 (<1.2) APTT 22.4 (22.0-30.0) sec Sodium 136 L (137-145) mmol/L Potassium 3.8 (3.5-5.1) mmol/L Chloride 104 (98-107) mmol/L Carbon Dioxide 23 (22-30) mmol/L Anion Gap 9 mmol/L BUN 21 H (9-20) mg/dL Creatinine 1.27 H (0.66-1.25) mg/dL Est GFR (CKD-EPI)AfAm 60 (>60 ml/min/1.73 sqM) Est GFR (CKD-EPI)NonAf 52 (>60 ml/min/1.73 sqM) Glucose 107 H (74-99) mg/dL Plasma Lactic Acid Cecilio (0.7-2.0) mmol/L Calcium 8.9 (8.4-10.2) mg/dL Magnesium 1.9 (1.6-2.3) mg/dL Total Bilirubin 0.6 (0.2-1.3) mg/dL AST 40 (17-59) U/L ALT 28 (4-49) U/L Alkaline Phosphatase 62 (38-126) U/L Troponin I (0.000-0.034) ng/mL Total Protein 7.2 (6.3-8.2) g/dL Albumin 4.1 (3.5-5.0) g/dL Coronavirus (PCR) (Not Detectd) 07/24/21 07/24/21 07/24/21 Range/Units 15:59 15:59 15:59 WBC (3.8-10.6) k/uL RBC (4.30-5.90) m/uL Hgb (13.0-17.5) gm/dL Hct (39.0-53.0) % MCV (80.0-100.0) fL MCH (25.0-35.0) pg MCHC (31.0-37.0) g/dL RDW (11.5-15.5) % Plt Count (150-450) k/uL MPV Neutrophils % % Lymphocytes % % Monocytes % % Eosinophils % % Basophils % % Neutrophils # (1.3-7.7) k/uL Lymphocytes # (1.0-4.8) k/uL Monocytes # (0-1.0) k/uL Eosinophils # (0-0.7) k/uL Basophils # (0-0.2) k/uL Manual Slide Review RBC Morphology PT (9.0-12.0) sec INR (<1.2) APTT (22.0-30.0) sec Sodium (137-145) mmol/L Potassium (3.5-5.1) mmol/L Chloride (98-107) mmol/L Carbon Dioxide (22-30) mmol/L Anion Gap mmol/L BUN (9-20) mg/dL Creatinine (0.66-1.25) mg/dL Est GFR (CKD-EPI)AfAm (>60 ml/min/1.73 sqM) Est GFR (CKD-EPI)NonAf (>60 ml/min/1.73 sqM) Glucose (74-99) mg/dL Plasma Lactic Acid Cecilio 1.0 (0.7-2.0) mmol/L Calcium (8.4-10.2) mg/dL Magnesium (1.6-2.3) mg/dL Total Bilirubin (0.2-1.3) mg/dL AST (17-59) U/L ALT (4-49) U/L Alkaline Phosphatase (38-126) U/L Troponin I 0.019 (0.000-0.034) ng/mL Total Protein (6.3-8.2) g/dL Albumin (3.5-5.0) g/dL Coronavirus (PCR) Detected A (Not Detectd) Disposition Clinical Impression: Near syncope, COVID-19 Disposition: HOME SELF-CARE Condition: Stable Instructions (If sedation given, give patient instructions): Coronavirus Disease 2019 (COVID-19) Additional Instructions: Please return to the Emergency Department if symptoms worsen or any other concerns. Is patient prescribed a controlled substance at d/c from ED?: No Referrals: Antonieta Rey MD [Primary Care Provider] - 1-2 days Time of Disposition: 17:45
[2021-07-24 16:16] LABS: Basophils % (A) 1 %; Eosinophils % (A) 1 %; HCT 39.9 % (39.0-53.0); Lymphocytes # (A) 0.5 k/uL (1.0-4.8); Lymphocytes % (A) 11 %; MCH 31.7 pg (25.0-35.0); MCHC 32.7 g/dL (31.0-37.0); Mean Platelet Volume 7.1; Monocytes # (A) 0.8 k/uL (0-1.0); Monocytes % (A) 16 %; Neutrophils # (A) 3.5 k/uL (1.3-7.7); Neutrophils % (A) 69 %; Platelet Count 174 k/uL (150-450); RBC 4.11 m/uL (4.30-5.90); RDW 13.5 % (11.5-15.5); WBC 5.1 k/uL (3.8-10.6)
[2021-07-24 16:25] LABS: Partial Thromboplastin Time 22.4 sec (22.0-30.0); Prothrombin Time 11.1 sec (9.0-12.0)
[2021-07-24 16:26] LABS: Albumin 4.1 g/dL (3.5-5.0); Calcium 8.9 mg/dL (8.4-10.2); Magnesium 1.9 mg/dL (1.6-2.3); Potassium 3.8 mmol/L (3.5-5.1); Total Bilirubin 0.6 mg/dL (0.2-1.3); Total Protein 7.2 g/dL (6.3-8.2)
[2021-07-24] MEDS ORDERED: SOTROVIMAB (EUA) 500 MG in SODIUM CHLORIDE 0.9% 100 ML IVPB ONE (17:15)
[2021-07-24] MEDS ORDERED: SODIUM CHLORIDE 0.9% 50 ML IVPB ONE (17:15)
--- NOTE | 2021-07-24 17:48 | XR ---
EXAMINATION TYPE: XR chest 2V DATE OF EXAM: 07/24/2021 COMPARISON: 08/30/2017 HISTORY: Syncope TECHNIQUE: FINDINGS: Heart is normal. Lungs are clear of infiltrate. There is no heart failure. There are no hil ar masses. Costophrenic angles are fairly clear. Bony thorax appears intact. IMPRESSION: No active cardiopulmonary disease. Normal heart. No change.
[2021-07-24 18:55] LABS: Appearance,Urine Clear (Clear); Bilirubin,Urine Negative (Negative); Blood,Urine Negative (Negative); Color,Urine Yellow; Glucose,Urine (UA) Negative (Negative); Ketones,Urine 2+ (Negative); Leukocyte Esterase,Urine Negative (Negative); Nitrite,Urine Negative (Negative); Protein,Urine Trace (Negative); Specific Gravity,Urine 1.014 (1.001-1.035); Urobilinogen,Urine <2.0 mg/dL (<2.0)
[2021-07-24 19:11] VITALS: BP 161/83; PULSE 78; TEMP 99.1
== END 2021-07-24 19:10 | disposition home or self-care (01) ==
LOC: EC 15:35
DX: U07.1 COVID-19 (principal); K21.9 Gastro-esophageal reflux disease without esophagitis; I10 Essential (primary) hypertension; Z90.49 Acquired absence of other specified parts of digestive tract; Z88.1 Allergy status to other antibiotic agents; Z87.891 Personal history of nicotine dependence
CPT/HCPCS: 99285; 96360; 36415; 93005; 80053; 83605; 83735; 84484; 85025; 85610; 85730; 81003; 87635; 71046; Q0247

== ENCOUNTER 2024-09-21 11:12 | Emergency (ER) | payer MEDICARE, OTHER ==
[2024-09-21 11:19] VITALS: RESP 18
[2024-09-21] MEDS: SODIUM CHLORIDE 0.9% 1,000 ML IV STA (11:31)
--- NOTE | 2024-09-21 11:32 | ED ---
Syncope HPI - General Chief Complaint: Syncope Stated Complaint: syncope Time Seen by Provider: 09/21/24 11:18 Source: patient, EMS, RN notes reviewed Mode of arrival: EMS Limitations: no limitations - History of Present Illness Initial Comments: This is an 88-year-old male who presents to the emergency department for a syncopal episode. Patient was sitting down at mandae[employer] and suddenly passed out. He was reportedly unconscious for between 4 and 8 minutes. He did not hit his head or sustain any injuries during these events. When he got up someone gave him some juice to drink. Patient denies any prodromal symptoms such as dizziness, lightheadedness, chest pain, or shortness of breath. He did have a syncopal episode a couple of years ago when he was urinating as well. Patient currently feels fine and denies any complaints. States that he did not eat this morning because he was in a valle and wonders if that may have caused it. - Related Data Home Medications Medication Instructions Recorded Confirmed Losartan Potassium [Cozaar] 100 mg PO DAILY 12/12/14 07/24/21 Omeprazole [PriLOSEC] 20 mg PO BID 12/12/14 07/24/21 Metoprolol Tartrate [Lopressor] 25 mg PO BID 08/28/17 07/24/21 Cholecalciferol [Vitamin D3 (25 50 mcg PO DAILY 07/24/21 07/24/21 Mcg = 1000 Iu)] HYDROcodone/APAP 7.5-325MG [[place] 1 tab PO Q12H PRN 07/24/21 07/24/21 7.5-325] amLODIPine [Norvasc] 5 mg PO DAILY 07/24/21 07/24/21 Allergies Allergy/AdvReac Type Severity Reaction Status Date / Time doxycycline Allergy Unknown Verified 09/21/24 11:20 levofloxacin [From Levaquin] Allergy Unknown Verified 09/21/24 11:20 ibuprofen [From Motrin] AdvReac Nausea Verified 09/21/24 11:20 Review of Systems ROS Statement: Those systems with pertinent positive or pertinent negative responses have been documented in the HPI. ROS Other: All systems not noted in ROS Statement are negative. Past Medical History Past Medical History: Cancer, GERD/Reflux, Hearing Disorder / Deafness, Hypertension Additional Past Medical History / Comment(s): BPH, bulged disk in neck. Last Myocardial Infarction Date:: unkn History of Any Multi-Drug Resistant Organisms: None Reported Past Surgical History: Cholecystectomy, Hernia Repair, Prostate Surgery, Tonsillectomy Additional Past Surgical History / Comment(s): cyst from spine removed. Past Anesthesia/Blood Transfusion Reactions: No Reported Reaction Additional Past Anesthesia/Blood Transfusion Reaction / Comment(s): Pt has received blood in past without reaction. Past Psychological History: No Psychological Hx Reported Smoking Status: Former smoker Past Alcohol Use History: None Reported Past Drug Use History: None Reported - Past Family History Mother History Unknown: Yes Additional Family Medical History / Comment(s): Pt was adopted Father History Unknown: Yes Additional Family Medical History / Comment(s): Pt was adopted. He does know that father was an alcoholic. General Exam Limitations: no limitations General appearance: alert, in no apparent distress Head exam: Present: atraumatic, normocephalic, normal inspection Eye exam: Present: normal appearance, PERRL, EOMI. Absent: scleral icterus, conjunctival injection, periorbital swelling Respiratory exam: Present: normal lung sounds bilaterally. Absent: respiratory distress, wheezes, rales, rhonchi, stridor Cardiovascular Exam: Present: regular rate, normal rhythm Neurological exam: Present: alert, oriented X3, CN II-XII intact Psychiatric exam: Present: normal affect, normal mood Skin exam: Present: warm, dry, intact, normal color. Absent: rash Course Vital Signs 09/21/24 09/21/24 09/21/24 11:13 12:54 13:19 Temperature 98.3 F Pulse Rate 67 62 Pulse Rate [ 57 L Artistic Associate ] Pulse Rate [ 63 Left Artistic Associate] Pulse Rate [ 70 Right Artistic Associate] Respiratory 18 18 Rate Blood Pressure 141/77 161/83 Blood Pressure 162/85 [Left Arm Sitting] Blood Pressure 137/82 [Left Arm Standing] Blood Pressure 160/82 [Left Arm Supine] O2 Sat by Pulse 97 98 Oximetry 09/21/24 14:41 Temperature 98.1 F Pulse Rate 68 Pulse Rate [ Artistic Associate ] Pulse Rate [ Left Artistic Associate] Pulse Rate [ Right Artistic Associate] Respiratory 18 Rate Blood Pressure 124/78 Blood Pressure [Left Arm Sitting] Blood Pressure [Left Arm Standing] Blood Pressure [Left Arm Supine] O2 Sat by Pulse 96 Oximetry Medical Decision Making - Medical Decision Making This is an 88-year-old male who presents to the emergency department for a syncopal episode. Was pt. sent in by a medical professional or institution? @ -No Did you speak to anyone other than the patient for history? @ -Family and EMS provided the information about how long he was unconscious for. Did you review nursing and triage notes? @ -Yes, and I agree, it is accurate with regards to the patient's symptoms. Were old charts reviewed? @ -No Differential Diagnosis? @ -Differential Syncope: Valvular disease, hypertrophic cardiomyopathy, pulmonary embolism, tamponade, tachycardia, bradycardia, SC, hypovolemia, hemorrhage, dissection, anemia, intracranial hemorrhage, seizure, hypoglycemia, carbon monoxide poisoning, this is not meant to be an all-inclusive list. EKG interpreted by me (3pts min.)? @ -EKG interpreted by me demonstrating the following: Sinus rhythm. Ventricular rate 64 bpm, LA interval 175 ms, QRS duration 95 ms, QTc 435 ms. X-rays interpreted by me (1pt min.)? @ -Chest x-ray obtained, my interpretation identifies no localized consolidations or infiltrates. CT interpreted by me (1pt min.)? @ -Not obtained U/S interpreted by me (1pt. min.)? @ -Not obtained What testing was considered but not performed? (CT, X-rays, U/S, labs)? Why? @ -None What meds were considered but not given? Why? @ -None Did you discuss the management of the patient with other professionals? @ -No Did you reconcile home meds? @ -No Was smoking cessation discussed for >3mins.? @ -No Was critical care preformed (if so, how long)? @ -No Were there social determinants of health that impacted care today? How? (Homelessness, low income, unemployed, alcoholism, drug addiction, transpo rtation, low edu. Level, literacy, decrease access to med. care, prison, rehab)? @ -No Was there de-escalation of care discussed even if they declined? (Discuss DNR or withdrawal of care, Hospice)? @ -No What co-morbidities impacted this encounter? (DM, HTN, Smoking, COPD, CAD, Cancer, CVA, Hep., AIDS, mental health diagnosis, sleep apnea, morbid obesity)? @ -HTN Was patient admitted / discharged? @ -Discharged. Lab work unremarkable. Troponin negative. Urinalysis negative for signs of infection. Chest x-ray reveals no acute process. Patient remained asymptomatic in the emergency department. He was given a liter bolus of IV fluids. Orthostatics mildly positive with regards to the systolic blood pressure. Advised the patient that the cause of his syncopal episode is not clear at this point. He believes it is like related to not eating this morning. While that is a possibility, we also discussed other potential causes such as a cardiac arrhythmia. I did strongly advise admission overnight with cardiology consult for further evaluation of the syncopal episode. However, patient declined and advised that he would rather go home and has family to take care of him. He was given very strict return parameters and advised to have close follow-up with his PCP. Patient discharged home in stable condition. Case discussed with ED attending Dr. Martinez. Return precautions reviewed in depth, the patient is instructed to return to the emergency department with any new, worsening, or concerning symptoms. Patient verbalized understanding. Undiagnosed new problem with uncertain prognosis? @ -None Drug Therapy requiring intensive monitoring for toxicity (Heparin, Nitro, Insulin, Cardizem)? @ -None Were any procedures done? @ -None Diagnosis/symptom? @ -Syncope Acute, or Chronic, or Acute on Chronic? @ -Acute Uncomplicated (without systemic symptoms) or Complicated (systemic symptoms)? @ -Uncomplicated Side effects of treatment? @ -None Exacerbation, Progression, or Severe Exacerbation] @ -Not applicable Poses a threat to life or bodily function? @ -This will depend on the cause - Lab Data Result diagrams: 09/21/24 11:30 09/21/24 11:30 Lab Results 09/21/24 09/21/24 09/21/24 Range/Units 11:30 11: 11:30 WBC 7.2 (3.8-10.6) k/uL RBC 3.85 L (4.30-5.90) m/uL Hgb 12.3 L (13.0-17.5) gm/dL Hct 37.4 L (39.0-53.0) % MCV 97.2 (80.0-100.0) fL MCH 31.9 (25.0-35.0) pg MCHC 32.8 (31.0-37.0) g/dL RDW 13.3 (11.5-15.5) % Plt Count 240 (150-450) k/uL MPV 7.2 Neutrophils % 66 % Lymphocytes % 19 % Monocytes % 12 % Eosinophils % 2 % Basophils % 0 % Neutrophils # 4.7 (1.3-7.7) k/uL Lymphocytes # 1.3 (1.0-4.8) k/uL Monocytes # 0.9 (0-1.0) k/uL Eosinophils # 0.2 (0-0.7) k/uL Basophils # 0.0 (0-0.2) k/uL PT 10.7 (10.0-12.5) sec INR 1.0 (<1.2) APTT 18.8 L (22.0-30.0) sec Sodium 137 (137-145) mmol/L Potassium 4.4 (3.5-5.1) mmol/L Chloride 106 (98-107) mmol/L Carbon Dioxide 24 (22-30) mmol/L Anion Gap 7 mmol/L BUN 14 (9-20) mg/dL Creatinine 1.10 (0.66-1.25) mg/dL Est GFR (CKD-EPI)AfAm 70 (>60 ml/min/1.73 sqM) Est GFR (CKD-EPI)NonAf 61 (>60 ml/min/1.73 sqM) Glucose 118 H (74-99) mg/dL Calcium 8.5 (8.4-10.2) mg/dL Magnesium 2.1 (1.6-2.3) mg/dL Total Bilirubin 0.7 (0.2-1.3) mg/dL AST 25 (17-59) U/L ALT 19 (4-49) U/L Alkaline Phosphatase 59 (38-126) U/L Troponin I (0.000-0.034) ng/mL Total Protein 6.9 (6.3-8.2) g/dL Albumin 3.8 (3.5-5.0) g/dL Urine Color Urine Appearance (Clear) Urine pH (5.0-8.0) Ur Specific [place] (1.001-1.035) Urine Protein (Negative) Urine Glucose (UA) (Negative) Urine Ketones (Negative) Urine Blood (Negative) Urine Nitrite (Negative) Urine Bilirubin (Negative) Urine Urobilinogen (<2.0) mg/dL Ur Leukocyte Esterase (Negative) 09/21/24 09/21/24 Range/Units 11:30 13:44 WBC (3.8-10.6) k/uL RBC (4.30-5.90) m/uL Hgb (13.0-17.5) gm/dL Hct (39.0-53.0) % MCV (80.0-100.0) fL MCH (25.0-35.0) pg MCHC (31.0-37.0) g/dL RDW (11.5-15.5) % Plt Count (150-450) k/uL MPV Neutrophils % % Lymphocytes % % Monocytes % % Eosinophils % % Basophils % % Neutrophils # (1.3-7.7) k/uL Lymphocytes # (1.0-4.8) k/uL Monocytes # (0-1.0) k/uL Eosinophils # (0-0.7) k/uL Basophils # (0-0.2) k/uL PT (10.0-12.5) sec INR (<1.2) APTT (22.0-30.0) sec Sodium (137-145) mmol/L Potassium (3.5-5.1) mmol/L Chloride (98-107) mmol/L Carbon Dioxide (22-30) mmol/L Anion Gap mmol/L BUN (9-20) mg/dL Creatinine (0.66-1.25) mg/dL Est GFR (CKD-EPI)AfAm (>60 ml/min/1.73 sqM) Est GFR (CKD-EPI)NonAf (>60 ml/min/1.73 sqM) Glucose (74-99) mg/dL Calcium (8.4-10.2) mg/dL Magnesium (1.6-2.3) mg/dL Total Bilirubin (0.2-1.3) mg/dL AST (17-59) U/L ALT (4-49) U/L Alkaline Phosphatase (38-126) U/L Troponin I <0.012 (0.000-0.034) ng/mL Total Protein (6.3-8.2) g/dL Albumin (3.5-5.0) g/dL Urine Color Yellow Urine Appearance Clear (Clear) Urine pH 6.0 (5.0-8.0) Ur Specific [place] 1.015 (1.001-1.035) Urine Protein Negative (Negative) Urine Glucose (UA) Negative (Negative) Urine Ketones Negative (Negative) Urine Blood Negative (Negative) Urine Nitrite Negative (Negative) Urine Bilirubin Negative (Negative) Urine Urobilinogen <2.0 (<2.0) mg/dL Ur Leukocyte Esterase Negative (Negative) - Radiology Data Radiology results: report reviewed, image reviewed Disposition Clinical Impression: Syncope Disposition: HOME SELF-CARE Instructions (If sedation given, give patient instructions): Syncope (ED) Additional Instructions: Return to the emergency department with any new, worsening, or concerning symptoms. Follow up with your primary care provider in 1-2 days. Is patient prescribed a controlled substance at d/c from ED?: No Referrals: Antonieta Rey MD [Primary Care Provider] - 1-2 days Time of Disposition: 14:16
[2024-09-21 11:44] LABS: Basophils % (A) 0 %; Eosinophils # (A) 0.2 k/uL (0-0.7); Eosinophils % (A) 2 %; HCT 37.4 % (39.0-53.0); HGB 12.3 gm/dL (13.0-17.5); Lymphocytes # (A) 1.3 k/uL (1.0-4.8); Lymphocytes % (A) 19 %; MCH 31.9 pg (25.0-35.0); MCHC 32.8 g/dL (31.0-37.0); MCV 97.2 fL (80.0-100.0); Mean Platelet Volume 7.2; Monocytes # (A) 0.9 k/uL (0-1.0); Monocytes % (A) 12 %; Neutrophils # (A) 4.7 k/uL (1.3-7.7); Neutrophils % (A) 66 %; Platelet Count 240 k/uL (150-450); RBC 3.85 m/uL (4.30-5.90); RDW 13.3 % (11.5-15.5); WBC 7.2 k/uL (3.8-10.6)
--- NOTE | 2024-09-21 11:59 | XR ---
Chest, 2 view. CLINICAL INDICATION: Male, 88 years old with history of syncope COMPARISON: 07/24/2021 TECHNIQUE: PA and lateral views the chest are obtained. FINDINGS: The lungs are clear and there is no consolidative or interstitial opacity. There is no pleural effusion or pneumothorax. The heart, pulmonary vasculature, mediastinum and gina appear normal. The osseous structures are intact. IMPRESSION: No significant abnormality seen. No acute cardiopulmonary disease. [facility], , 09/21/2024 11:57 AM
[2024-09-21 12:04] LABS: Prothrombin Time 10.7 sec (10.0-12.5)
[2024-09-21 12:06] LABS: ALT 19 U/L (4-49); AST 25 U/L (17-59); African American GFR (CKD) 70 (>60 ml/min/1.73 sqM); Albumin 3.8 g/dL (3.5-5.0); Alkaline Phosphatase 59 U/L (38-126); Anion Gap 7 mmol/L; Blood Urea Nitrogen 14 mg/dL (9-20); Calcium 8.5 mg/dL (8.4-10.2); Carbon Dioxide 24 mmol/L (22-30); Chloride 106 mmol/L (98-107); Glucose 118 mg/dL (74-99); Magnesium 2.1 mg/dL (1.6-2.3); Non-African American GFR(CKD) 61 (>60 ml/min/1.73 sqM); Potassium 4.4 mmol/L (3.5-5.1); Sodium 137 mmol/L (137-145); Total Bilirubin 0.7 mg/dL (0.2-1.3); Total Protein 6.9 g/dL (6.3-8.2)
[2024-09-21 12:11] LABS: Partial Thromboplastin Time 18.8 sec (22.0-30.0)
[2024-09-21 13:58] LABS: Appearance,Urine Clear (Clear); Bilirubin,Urine Negative (Negative); Blood,Urine Negative (Negative); Color,Urine Yellow; Glucose,Urine (UA) Negative (Negative); Ketones,Urine Negative (Negative); Leukocyte Esterase,Urine Negative (Negative); Nitrite,Urine Negative (Negative); Protein,Urine Negative (Negative); Specific Gravity,Urine 1.015 (1.001-1.035); Urobilinogen,Urine <2.0 mg/dL (<2.0)
[2024-09-21 14:43] VITALS: BP 124/78; PULSE 68; TEMP 98.1
== END 2024-09-21 14:43 | disposition home or self-care (01) ==
LOC: EC 11:12
DX: R55 Syncope and collapse (principal); I10 Essential (primary) hypertension; Z79.899 Other long term (current) drug therapy; Z88.1 Allergy status to other antibiotic agents; Z88.6 Allergy status to analgesic agent; Z87.891 Personal history of nicotine dependence
CPT/HCPCS: 36415; 71046; 80053; 81003; 83735; 84484; 85025; 85610; 85730; 93005; 96360; 99285